=== PATIENT | male | born 1955 | race Caucasian/White ===

== ENCOUNTER 2016-03-11 10:46 | Inpatient (IN) | payer OTHER, MEDICAID ==
[~2016-03-11] VITALS: Ht 165.1 cm; Wt 91.9 kg
[~2016-03-11 10:46] MED LIST: AMLO-218 PO; ATOR40TA68 PO; CARV12.598 PO; FERR325C PO; INSU100I13 SC; LISI40TA9 PO; MTF1000T PO; OMEG-101 PO; OMEP20CA16 PO
[2016-03-11] MEDS ORDERED: ALBUTEROL 0.5% (NEB) 2.5 MG/0.5 ML AMP INH STA (11:04)
[2016-03-11] MEDS ORDERED: IPRATROPIUM (NEB) 0.5 MG/2.5 ML AMP INH STA ×2 (11:04→13:24)
[2016-03-11] MEDS ORDERED: NOVMIX SC (11:25)
[2016-03-11] MEDS ORDERED: CARV12.579 PO (11:28)
[2016-03-11] MEDS ORDERED: SITA50TA2 PO (11:29)
[2016-03-11] MEDS ORDERED: GLIP5TAB13 PO (11:29)
[2016-03-11] MEDS ORDERED: LOSA50TA6 PO (11:29)
--- NOTE | 2016-03-11 11:33 | RADRPT ---
PROCEDURE: XR Chest. CLINICAL INDICATION: Shortness of breath. TECHNIQUE: Single frontal view. COMPARISON: 03/02/2015. FINDINGS: The lungs are clear. The heart is enlarged. There is no pleural effusion. There is no pneumothorax. IMPRESSION: 1. Cardiomegaly. 2. Clear lungs. RPTAT: QQ .Aren Wharton MD, MD Date Time Electronically viewed and signed by .Aren Wharton MD, MD on 03/11/2016 11:33 .R/
[2016-03-11 11:53] LABS: BASOPHILS % 0.3 % (0.0-2.0); EOSINOPHILS % 0.1 % (0.0-7.0); HEMATOCRIT 28.6 % (42.0-52.0); HEMOGLOBIN 9.9 g/dl (14.0-18.0); LYMPHOCYTES # 0.8 10^3/ul (0.8-2.9); LYMPHOCYTES % 5.1 % (15.0-51.0); MEAN CORPUSCULAR HGB CONC 34.4 g/dl (32.0-37.0); MEAN CORPUSCULAR VOLUME 81.3 fl (82.0-101.0); MONOCYTE # 1.1 10^3/ul (0.3-0.9); MONOCYTES % 7.3 % (0.0-11.0); NEUTROPHIL # 13.4 10^3/ul (1.6-7.5); NEUTROPHILS % 87.2 % (39.0-77.0); PLATELET COUNT 223 10^3/UL (140-440); RED BLOOD COUNT 3.52 10^6/ul (4.70-6.10); RED CELL DISTRIBUTION WIDTH 14.2 % (11.5-14.5); UNCORRECTED WBC 15.3 10^3/ul (4.8-10.8); WHITE BLOOD COUNT 15.3 10^3/ul (4.8-10.8)
[2016-03-11 11:54] LABS: INR 1.29; PARTIAL THROMBOPLASTIN TIME 39.7 Sec (25.0-35.0); PROTIME 16.2 Sec (12.2-14.2); PT RATIO 1.3
[2016-03-11 11:57] LABS: ALBUMIN 3.5 g/dl (3.3-4.9); CHLORIDE 90 mmol/L (97-110)
[2016-03-11 11:58] LABS: POTASSIUM 4.3 mmol/L (3.5-5.1); SODIUM 131 mmol/L (135-144)
[2016-03-11 11:59] LABS: CONDITION 1; LH ANALYZER COMMENTS 1
[2016-03-11 12:00] LABS: ALBUMIN/GLOBULIN RATIO 0.94; ALKALINE PHOSPHATASE 199 IU/L (42-121); ANION GAP 21 (8-16); ASPARTATE AMINO TRANSFERASE 26 IU/L (15-46); BLOOD UREA NITROGEN 46 mg/dl (7-20); CARBON DIOXIDE 24 mmol/L (21-31); CREATININE 2.82 mg/dl (0.61-1.24); TOTAL PROTEIN 7.2 g/dl (6.1-8.1)
[2016-03-11 12:01] LABS: ALANINE AMINOTRANSFERASE 38 IU/L (13-69); CALCIUM 8.6 mg/dl (8.4-10.2); CREATINE KINASE 329 IU/L (23-200); GLUCOSE 148 mg/dl (70-220)
[2016-03-11 12:09] LABS: B-TYPE NATRIURETIC PEPTIDE 6230 PG/ML (0-125)
[2016-03-11 12:10] LABS: CK-MB 2.46 ng/ml (0.0-2.4)
[2016-03-11 12:14] LABS: TROPONIN-I < 0.012 ng/ml (0.00-0.12)
[2016-03-11] MEDS ORDERED: FUROSEMIDE 40 MG INJ IV ONE (12:30)
[2016-03-11 12:52] VITALS: TEMP 97.7
[2016-03-11 13:14] LABS: AADO2 Arterial 69.1 mmHg (7.0-24.0); Allen Test ACCEPTAB; Arterial Base Excess -0.2 mmol/L (-3.0-3); Arterial COHb 0.3 % (0.0-3.0); Arterial Fraction of Oxyhgb 95.8 % (93.0-99.0); Arterial HCO3 23.1 mmol/L (22.0-26.0); Arterial MetHb 0.3 % (0.0-1.5); Arterial Total Hemglobin 8.8 g/dl (12.0-18.0); MODE NASAL CANNULA
[2016-03-11] MEDS ORDERED: LEVALBUTEROL (NEB) 1.25 MG/0.5 ML AMP INH STA (13:24)
--- NOTE | 2016-03-11 14:09 | ERA ---
ER Documentation Chief Complaint Date/Time DATE: 03/11/16 TIME: 14:04 Chief Complaint SOB WITH COUGH AND RECENT DX OF PULMONARY EDAMA HPI This is a 61-year-old German speaking male with a known history of congestive heart failure, diabetes, hypertension that presents to the emergency department complaining of a nonproductive cough and shortness of breath that has been progressively worsening over the past 48 hours. He was seen in the clinic yesterday and was instructed to immediately come to the emergency department however the patient stated he decided to go home. His symptoms progressively worse throughout the night and therefore he came to the emergency department. He states he has also been experiencing swelling of his legs but denies any calf tenderness. He denies any fever shaking or chills. He has no chest pain or pressure that radiates to the neck or back or jaw. He states he has been compliant with all his medications. He denies any recent travel or prolonged immobilization and states that the symptoms are similar nature to his previous episode of CHF exacerbation ROS All systems reviewed and are negative except as per history of present illness. Medications Home Meds Active Scripts Carvedilol* (Coreg*) 12.5 Mg Tab, 12.5 MG PO BID for 60 Days, TAB Prov:WILLIE LIMLaureen 03/04/15 Reported Medications Losartan Potassium* (Losartan Potassium*) 50 Mg Tablet, 50 MG PO DAILY, TAB 03/11/16 Glipizide* (Glipizide*) 5 Mg Tablet, 5 MG PO BID, TAB 03/11/16 Sitagliptin* (Januvia*) 50 Mg Tablet, 50 MG PO DAILY, #30 TAB 03/11/16 Carvedilol* (Carvedilol*) 12.5 Mg Tablet, 12.5 MG PO BID, #60 TAB 03/11/16 Insulin Aspart (Novolog Mix (70/30)) 100 Units/Ml Soln, 30 SC WITH BREAKFAST LUNCH, VIAL 03/11/16 [place]-3 Acid Ethyl Esters ([place]-3 Acid Ethyl Esters) 1 Gm Capsule, 1 GM PO BID , #180 03/02/15 Omeprazole* (Omeprazole*) 20 Mg Capsule.dr, 20 MG PO AC BREAKFAST, #90 03/02/15 Lisinopril* (Lisinopril*) 40 Mg Tablet, 40 MG PO DAILY, #30 TAB 03/02/15 Metformin* (Glucophage*) 1,000 Mg Tablet, 1000 MG PO BID, #60 TAB 03/02/15 Insuln Asp Prt/Insulin Aspart* (Novolog Mix 70-30 Flexpen*) 100 Units/Ml Pen, 20 UNIT SC QHS, EA 03/02/15 Discontinued Reported Medications Ferrous Sulfate (Iron) 325 Mg Capsr, 325 MG PO DAILY 03/02/15 Atorvastatin* (Atorvastatin*) 40 Mg Tablet, 40 MG PO QHS, #30 TAB 03/02/15 Insuln Asp Prt/Insulin Aspart* (Novolog Mix 70-30 Flexpen*) 100 Units/Ml Pen, 40 UNIT SC AC BREAKFAST LUNCH, EA 03/02/15 Discontinued Scripts Amlodipine Besylate* (Norvasc*) 10 Mg Tablet, 10 MG PO DAILY for 60 Days, TAB Prov:GABRIELLE LIM 03/04/15 Allergies Allergies: Coded Allergies: No Known Allergy (Unverified , 03/11/16) PMhx/Soc History of Surgery: Yes (Both eyes surgery) Anesthesia Reaction: No Hx Neurological Disorder: No Hx Respiratory Disorders: Yes (bronchitis 2016) Hx Cardiac Disorders: No Hx Psychiatric Problems: No Hx Miscellaneous Medical Probl: No Hx Alcohol Use: Yes Hx Substance Use: No Hx Tobacco Use: No Physical Exam Vitals Vital Signs Date Time Temp Pulse Resp B/P Pulse Ox O2 Delivery O2 Flow Rate FiO2 03/11/16 14:01 70 24 100 2.0 28 03/11/16 12:52 97.7 68 18 158/86 99 Nasal Cannula 2.0 03/11/16 12:19 97.7 98 24 164/84 03/11/16 12:01 99 3.0 32 03/11/16 12:01 66 22 99 Nasal Cannula 3.0 32 03/11/16 11:17 Nasal Cannula 2 03/11/16 11:17 Nasal Cannula 2.0 03/11/16 10:50 97.9 76 18 175/79 99 Physical Exam Constitutional:Well-developed. Well-nourished. Patient in severe respiratory distress peer HEENT:Normocephalic. Atraumatic.Pupils were equal round reactive to light. Moist mucous membranes.No tonsillar exudates. Neck: No nuchal rigidity. No lymphadenopathy. No posterior cervical spine tenderness or step-offs. Respiratory: Using accessory muscles of respiration.Lungs were clear to auscultation bilaterally.No rales. No wheezing. Rhonchi heard bilaterally Cardiovascular: Regular rate regular rhythm.No murmurs. No rubs were appreciated.S1, S2 normal. Distal pulses are palpable 2+ bilaterally. GI: Abdomen was soft. Nontender. Non Distended. No pulsatile abdominal masses or bruits. No rebound. No guarding. Bowel sounds were present and normal. Muscle skeletal: Full range of motion of both the upper and lower extremities bilaterally.Normal muscle tone.No assymetrical calf tenderness or swelling. Skin: No petechia, no purpura. No lesions on the palms or the soles of the feet. No maculopapular rash. 2+ pitting edema the bilateral lower extremities with no calf tenderness NEURO: Patient was alert, awake, orientated x3.No facial droop. Gait observed and normal with no ataxia.Speech had regular rate and rhythm. No focal neurological deficits. Result Diagram: 03/11/16 1115 03/11/16 1115 Results 24 hrs Laboratory Tests Test 03/11/16 11:04 03/11/16 11:15 03/11/16 11:16 Arterial Blood HCO3 23.1mmol/L Arterial Blood Base Excess -0.2mmol/L Arterial Blood Oxygen Saturation 96.4mmHG Oniel Test ACCEPTAB Arterial Blood Gas Puncture Site Right Radial Arterial Blood Carboxyhemoglobin 0.3% Arterial Blood Date Drawn 03/11/2016 1:08:24 PM Arterial Blood Methemoglobin 0.3% Arterial Blood pCO2 (Temp correct) 32.3mmhg Arterial Blood pH (Temp corrected) 7.472 Arterial Blood pO2 (Temp corrected) 85.2mmHG Blood Gas A-a O2 Differential 69.1mmHg Blood Gas Modality NASAL CANNULA Blood Gas Notified Time 03/11/2016 1:14:06 PM Blood Gas Notified Whom AB Blood Gas Specimen Source Blood arterial Blood Gas Temperature 37.0C FiO2 27.0% Oxyhemoglobin Percent 95.8% Total Hemoglobin 8.8g/dl Alanine Aminotransferase (ALT/SGPT) 38IU/L Albumin 3.5g/dl Albumin/Globulin Ratio 0.94 Alkaline Phosphatase 199IU/L Anion Gap 21 Aspartate Amino Transf (AST/SGOT) 26IU/L B-Type Natriuretic Peptide 6230PG/ML Basophils # 0.010^3/ul Basophils % 0.3% Blood Morphology Comment Blood Urea Nitrogen 46mg/dl Calcium Level 8.6mg/dl Carbon Dioxide Level 24mmol/L Chloride Level 90mmol/L Creatine Kinase 329IU/L Creatine Kinase Index 0.7 Creatinine 2.82mg/dl Creatinine Kinase MB (Mass) 2.46ng/ml Direct Bilirubin 0.00mg/dl Eosinophils # 0.010^3/ul Eosinophils % 0.1% Globulin 3.70g/dl Glucose Level 148mg/dl Hematocrit 28.6% Hemoglobin 9.9g/dl Indirect Bilirubin 0.0mg/dl Lymphocytes # 0.810^3/ul Lymphocytes % 5.1% Mean Corpuscular Hemoglobin 28.0pg Mean Corpuscular Hemoglobin Concent 34.4g/dl Mean Corpuscular Volume 81.3fl Mean Platelet Volume 10.0fl Monocytes # 1.110^3/ul Monocytes % 7.3% Neutrophils # 13.410^3/ul Neutrophils % 87.2% Nucleated Red Blood Cells # 0.010^3/ul Nucleated Red Blood Cells % 0.0/100WBC Platelet Count 83783^3/UL Potassium Level 4.3mmol/L Red Blood Count 3.5210^6/ul Red Cell Distribution Width 14.2% Sodium Level 131mmol/L Total Bilirubin 0.0mg/dl Total Protein 7.2g/dl Troponin I < 0.012ng/ml White Blood Count 15.310^3/ul Activated Partial Thromboplast Time 39.7Sec INR International Normalized Ratio 1.29 Prothrombin Time 16.2Sec Prothrombin Time Ratio 1.3 Current Medications Medications (Trade) Dose Ordered Sig/Bong Route PRN Reason Start Time Stop Time Status Last Admin Dose Admin Albuterol (Proventil 0.5% (Neb)) 7.5 mg ONCE STAT INH 03/11/16 11:04 03/11/16 11:09 DC 03/11/16 12:00 Ipratropium [place] (Atrovent 0.02% (Neb)) 0.5 mg ONCE STAT INH 03/11/16 11:04 03/11/16 11:09 DC 03/11/16 12:00 Furosemide (Lasix) 40 mg ONCE ONCE IV 03/11/16 12:30 03/11/16 12:32 DC 03/11/16 12:48 Levalbuterol (Xopenex Neb) 5 mg ONCE STAT INH 03/11/16 13:24 03/11/16 13:27 DC 03/11/16 13:56 Ipratropium [place] (Atrovent 0.02% (Neb)) 1 mg ONCE STAT INH 03/11/16 13:24 03/11/16 13:27 DC 03/11/16 13:56 Procedures/MDM The patient presented to the emergency department with shortness of breath. My differential diagnosis included but was not limited to upper airway obstruction , CHF, pulmonary embolism, cardiac ischemia, pneumonia, pneumothorax, anemia, drug overdose, pulmonary edema, COPD or asthma. The patient was placed in a conveyor monitor continuous pulse oximetry and IV access was established by nursing staff. The patient received nebulizer treatments of albuterol Atrovent and was treated for congestive heart failure exacerbation as there is an elevated BNP but the chest radiograph showed no evidence of pulmonary vascular congestion. The patient was given IV Lasix and nitroglycerin and had significant improvement of his dyspnea. The patient's multiple comorbidities and his severity of dyspnea when he first arrived I did feel he required admission for further nebulizer treatments. 12 Lead EKG tracing ordered and reviewed by myself showed: Normal sinus rhythm of 70 bpm and no arrhythmia. VA interval normal. QRS duration normal. ST segment elevation consistent with a left bundle branch block pattern. Utilizing the [place] criteria there is no underlying ST segment elevation or depression No ST segment depression. No changes consistent with acute ischemia. Patient will be admitted in serious condition the hospitalist Dr. Carbone to the telemetry service with an anticipated stay of greater than 2 midnights Departure Diagnosis: Primary Impression: Congestive heart failure Qualified Code: I50.9 - Acute on chronic congestive heart failure, unspecified congestive heart failure type Additional Impression: Acute kidney injury [facility] Mar 11, 2016 14:08
[2016-03-11] MEDS ORDERED: NITROGLYCERIN 2% 1 GM OINT PKT TD STA (14:10)
[2016-03-11] MEDS ORDERED: ACETAMINOPHEN 325 MG TAB PO PRN (14:30)
[2016-03-11] MEDS ORDERED: ONDANSETRON 4 MG INJ IV PRN ×2 (14:30→16:00)
[2016-03-11 14:48] LABS: ADD UMIC YES; URINE BILIRUBIN (Dip) NEGATIVE (NEGATIVE); URINE BLOOD (Dip) 1+ (NEGATIVE); URINE COLOR LT. YELLOW (YELLOW); URINE KETONES (Dip) NEGATIVE (NEGATIVE); URINE LEUKOCYTE ESTERASE (Dip) NEGATIVE (NEGATIVE); URINE NITRITE (Dip) NEGATIVE (NEGATIVE); URINE TOTAL PROTEIN (Dip) 2+ (NEGATIVE); URINE UROBILINOGEN (Dip) 0.2 E.U./dL (0.1-1.0)
[2016-03-11 14:59] LABS: BACTERIA,URINE RARE; URINE RBCS 0-2 /HPF (0)
--- NOTE | 2016-03-11 15:42 | HP ---
Date/Time of Note Date/Time of Note DATE: 03/11/16 TIME: 15:28 Assessment/Plan VTE Prophylaxis VTE Prophylaxis Intervention: heparin Assessment/Plan Assessment/Plan 61 yo M with Acute resp insufficiency 2/2 #2 CHF exacerbation * Acute on chronic with both systolic and diastolic dysfxn Reactive Leucocytosis r/o Bronchitis Mild Rhabdomyolysis DM 2: ?good control HTN: uncontrolled Dyslipidemia Acute renal insufficiency likely2/2 ATN from CHF versus ?meds Probable CAD Chronic CM likely ischemic with diastolic dysfxn on last echo PLAN: Admit tele Commence gentle diuresis Will get Cardiology and Nephrology consults Hold ACEi, ARBs, and metformin. Renally dose all meds. Serial labs. Resume home meds / add PRN hydralazine for better BP control and titrate meds accordingly in-house Bronchodilator therapy: scheduled and PRN pain control/ antiemetics/ supportive care Prophylaxis: Heparin and PPI Further evaluation and treatment will be based on clinical course Full discussion with care team done. All questions Answered Please also see orders. Total time spent on this evaluation >35mins HPI/ROS Admit Date/Time Admit Date/Time 03/11/16 Hx of Present Illness PRESENTING COMPLAINT: shortness of breath HISTORY OF PRESENTING COMPLAINT:This is a 61-year-old Guinean speaking male with a known history of congestive heart failure, diabetes, hypertension that presents to the emergency department complaining of a nonproductive cough and shortness of breath that has been progressively worsening over the past 48 hours. He was seen in the clinic yesterday and was instructed to immediately come to the emergency department however the patient stated he decided to go home. His symptoms progressively worse throughout the night and therefore he came to the emergency department. He states he has also been experiencing swelling of his legs but denies any calf tenderness. He denies any fever shaking or chills. He has no chest pain or pressure that radiates to the neck or back or jaw. He states he has been compliant with all his medications. He denies any recent travel or prolonged immobilization and states that the symptoms are similar nature to his previous episode of CHF exacerbation ROS 12 point review if systems was done and pertinent findings are as noted. PMH/Family/Social Past Medical History Possible CAD Cardiomyopathy and congestive heart failure. The patient does have an echo that shows an EF at 30% to 35% with stage II diastolic dysfunction, Hypertension. Diabetes. Bronchitis Gastritis Past Surgical History * [facility] sx Family History Significant Family History: diabetes Social History ALLERGY: NKDA HOME MEDS: Reviewed and reconciled Of note , Patient is on both losartan and Lisinopril Home situation: With family Exam/Review of Systems Vital Signs Vitals VS - Last 72 Hours, by Label Date Time Temp Pulse Resp B/P Pulse Ox O2 Delivery O2 Flow Rate FiO2 03/11/16 14:01 70 24 100 2.0 28 03/11/16 12:52 97.7 68 18 158/86 99 Nasal Cannula 2.0 03/11/16 12:19 97.7 98 24 164/84 03/11/16 12:01 99 3.0 32 03/11/16 12:01 66 22 99 Nasal Cannula 3.0 32 03/11/16 11:17 Nasal Cannula 2 03/11/16 11:17 Nasal Cannula 2.0 03/11/16 10:50 97.9 76 18 175/79 99 Vital Signs Date Time Temp Pulse Resp B/P Pulse Ox O2 Delivery O2 Flow Rate FiO2 03/11/16 14:01 70 24 100 2.0 28 03/11/16 12:52 97.7 158/86 Nasal Cannula Exam Exam GENERAL APPEARANCE: Well developed, well nourished, in no acute distress. SKIN: Gross inspection of the skin reveals no rashes, ulcerations or petechiae. HEENT: The sclerae were anicteric and conjunctivae were pink and moist. Extraocular movements were intact and pupils were equal, round, and reactive to light with normal accommodation. External inspection of the ears and nose showed no scars, lesions, or masses. Posterior pharynx was clear of erythema or exudate NECK: Supple and symmetric. There was no thyroid enlargement, and no tenderness , or masses were felt. CHEST: Normal AP diameter and movement . LUNGS: Auscultation of the lungs revealed CARDIOVASCULAR: There was a regular rate and rhythm without any murmurs, gallops , rubs. The carotid pulses were normal and 2+ bilaterally without bruits. Radial pulses were 2+ and symmetric. ABDOMEN: Soft and nontender with normal bowel sounds. No ascites was noted. LYMPH NODES: No lymphadenopathy was appreciated in the neck. MUSCULOSKELETAL: There was no tenderness or effusions noted. Muscle strength and tone were normal. EXTREMITIES: edema. NEUROLOGIC: Alert and oriented x 3. Normal affect PSYCHIATRIC: Normal mood and affect, not suicidal, not homicidal, no hallucinations, normal insight Constitutional: alert, oriented Psych: other (blank affect) Head: atraumatic, normocephalic Eyes: PERRL, icteric (?mildly) ENMT: mucosa pink and moist Neck: supple, No jvd Respiratory: diminished breath sounds, other (occ rhonchi) Cardiovascular: murmurs/extra sounds, regular rate and rhythm Gastrointestinal: bowel sounds, non-tender, soft Extremities: pitting pedal edema (2-3+) Skin: No rash or lesions Labs Result Diagram: 03/11/16 1115 03/11/16 1115 Procedures Procedures Laboratory Tests Test 03/11/16 11:04 03/11/16 11:15 03/11/16 11:16 Arterial Blood HCO3 23.1mmol/L Arterial Blood Base Excess -0.2mmol/L Arterial Blood Oxygen Saturation 96.4mmHG Oniel Test ACCEPTAB Arterial Blood Gas Puncture Site Right Radial Arterial Blood Carboxyhemoglobin 0.3% Arterial Blood Date Drawn 03/11/2016 1:08:24 PM Arterial Blood Methemoglobin 0.3% Arterial Blood pCO2 (Temp correct) 32.3mmhg Arterial Blood pH (Temp corrected) 7.472 Arterial Blood pO2 (Temp corrected) 85.2mmHG Blood Gas A-a O2 Differential 69.1mmHg Blood Gas Modality NASAL CANNULA Blood Gas Notified Time 03/11/2016 1:14:06 PM Blood Gas Notified Whom AB Blood Gas Specimen Source Blood arterial Blood Gas Temperature 37.0C FiO2 27.0% Oxyhemoglobin Percent 95.8% Total Hemoglobin 8.8g/dl Alanine Aminotransferase (ALT/SGPT) 38IU/L Albumin 3.5g/dl Albumin/Globulin Ratio 0.94 Alkaline Phosphatase 199IU/L Anion Gap 21 Aspartate Amino Transf (AST/SGOT) 26IU/L B-Type Natriuretic Peptide 6230PG/ML Basophils # 0.010^3/ul Basophils % 0.3% Blood Morphology Comment Blood Urea Nitrogen 46mg/dl Calcium Level 8.6mg/dl Carbon Dioxide Level 24mmol/L Chloride Level 90mmol/L Creatine Kinase 329IU/L Creatine Kinase Index 0.7 Creatinine 2.82mg/dl Creatinine Kinase MB (Mass) 2.46ng/ml Direct Bilirubin 0.00mg/dl Eosinophils # 0.010^3/ul Eosinophils % 0.1% Globulin 3.70g/dl Glucose Level 148mg/dl Hematocrit 28.6% Hemoglobin 9.9g/dl Indirect Bilirubin 0.0mg/dl Lymphocytes # 0.810^3/ul Lymphocytes % 5.1% Mean Corpuscular Hemoglobin 28.0pg Mean Corpuscular Hemoglobin Concent 34.4g/dl Mean Corpuscular Volume 81.3fl Mean Platelet Volume 10.0fl Monocytes # 1.110^3/ul Monocytes % 7.3% Neutrophils # 13.410^3/ul Neutrophils % 87.2% Nucleated Red Blood Cells # 0.010^3/ul Nucleated Red Blood Cells % 0.0/100WBC Platelet Count 06156^3/UL Potassium Level 4.3mmol/L Red Blood Count 3.5210^6/ul Red Cell Distribution Width 14.2% Sodium Level 131mmol/L Total Bilirubin 0.0mg/dl Total Protein 7.2g/dl Troponin I < 0.012ng/ml Urine Bacteria RARE Urine Bilirubin NEGATIVE Urine Clarity CLEAR Urine Coarse Granular Casts RARE Urine Color LT. YELLOW Urine Glucose 0.1%% Urine Hemoglobin 1+ Urine Ketones NEGATIVE Urine Leukocyte Esterase NEGATIVE Urine Microscopic RBC 0-2/HPF Urine Microscopic WBC 0-2/HPF Urine Nitrite NEGATIVE Urine Specific Girard 1.010 Urine Total Protein 2+ Urine Urobilinogen 0.2 E.U./dL Urine pH 6.0 White Blood Count 15.310^3/ul Activated Partial Thromboplast Time 39.7Sec INR International Normalized Ratio 1.29 Prothrombin Time 16.2Sec Prothrombin Time Ratio 1.3 PROCEDURE: XR Chest. CLINICAL INDICATION: Shortness of breath. TECHNIQUE: Single frontal view. COMPARISON: 03/02/2015. FINDINGS: The lungs are clear. The heart is enlarged. There is no pleural effusion. There is no pneumothorax. IMPRESSION: 1. Cardiomegaly. 2. Clear lungs. RPTAT: QQ .Aren Wharton MD, MD Date Time Electronically viewed and signed by .Aren Wharton MD, on 03/11/2016 11:33 PROCEDURE: Lexiscan myocardial perfusion study 03/03/2015 CLINICAL INDICATION: 60 -year-old patient complaining of chest pain. TECHNIQUE: Lexiscan 0.4 mg intravenously separate acquisition gated myocardial perfusion SPECT using Tc 99m Myoview approximately 30.0 mCi intravenously at stress and Tc-99m Myoview, approximately 10.0 mCi intravenously at rest was performed using the rest/stress sequence. Poststress Myoview SPECT images were obtained in the supine position. COMPARISON: No prior studies. FINDINGS: Perfusion images reveal a small size mild in degree nonreversible perfusion abnormality in the inferior wall. There is no evidence of stress-induced ischemia. Lexiscan post stress gated SPECT images demonstrate mild hypokinesis of the left ventricle. IMPRESSION: 1. The type and distribution of the scintigraphic abnormalities are most consistent with a small nonreversible perfusion abnormality in the inferior wall. 2. Mild hypokinesis of the left ventricle. 3. The left ventricle ejection fraction at stress is 34%. A call report was made to Dr. Nicholson 02:30 p.m. on March 03, 2015 RPTAT: HH .Arlin Alston, Date Time Electronically viewed and signed by .Arlin Alston, on 03/03/2015 14:31 Echocardiogram Report Patient Name: DEEP MORROW Gender: Male Date: 1955 Study Date: 03-Mar-2015 Traveling Repair Accountant: Justino Hilario RDCS Location: [id number] Ref. Physician: MANJEET NICHOLSON Quality: Technically Difficult Study Procedures: Transthoracic echocardiogram with complete 2D, M-Mode, and doppler examination. Indications: Chest Pain. 2D/M Mode Doppler Measurement Value Normal Ranges Measurement Value Normal Ranges LVIDd 2D 5.2 3.5 - 5.6 cm AV Peak Paresh 1.4 m/sec LVIDs 2D 4.5 2.1 - 4.1 cm AV Peak PG 8.0 mmHg LVPWd 2D 1.5 0.6 - 1.1 cm LVOT Peak Paresh 0.8 m/sec IVSd 2D 1.7 0.6 - 1.1 cm LVOT Peak PG 2.3 mmHg AoR Diam 2D 2.7 2.0 - 3.7 cm MV E Peak Paresh 1.2 m/sec EDV 2D 132.0 cm3 MV A Peak Paresh 1.1 m/sec ESV 2D 90.7 cm3 MV E/A 1.0 LA Dimen 2D 3.3 2.3 - 4.0 cm MV Decel Time 183 msec MV Decel [place] 6 MV E/A 1.0 Findings Left Ventricle: Normal left ventricular cavity size. Moderate concentric left ventricular hypertrophy. Severe left ventricular systolic dysfunction. Ejection fraction is visually estimated at 30 - 35 %. Tissue Doppler/Mitral Doppler indices are consistent with pseudonormalization with mildly elevated left atrial pressure (Stage II diastolic dysfunction). Right Ventricle: Normal right ventricular size. Left Atrium: The left atrium is normal in size. Right Atrium: The right atrium is normal in size. Mitral Valve: Normal appearance of the mitral valve. Mild mitral valve regurgitation. Aortic Valve: Normal appearance of the aortic valve. No significant aortic stenosis or insufficiency. Tricuspid Valve: Normal appearance of the tricuspid valve. Unable to obtain RVSP due to minimal presence of tricuspid regurgitation. Pulmonic Valve: Normal pulmonic valve appearance. Pericardium: Normal pericardium with no significant pericardial effusion. Aorta: Normal aortic root. IVC: Normal size and no respiratory collapse consistent with elevated right atrial pressure. Pulmonary Artery: Normal pulmonary artery size. Conclusions 1. Normal left ventricular cavity size. Moderate concentric left ventricular hypertrophy. Severe left ventricular systolic dysfunction. Ejection fraction is visually estimated at 30 - 35 %. Tissue Doppler/Mitral Doppler indices are consistent with pseudonormalization with mildly elevated left atrial pressure (Stage II diastolic dysfunction). 2. Normal appearance of the mitral valve. Mild mitral valve regurgitation. 3. Normal appearance of the aortic valve. No significant aortic stenosis or insufficiency. 4. Normal appearance of the tricuspid valve. Unable to obtain RVSP due to minimal presence of tricuspid regurgitation. Electronically Signed By: Manjeet Nicholson 03-Mar-2015 12:53:48 -0800 DIANA HARRISON Mar 11, 2016 15:39
[2016-03-11] MEDS ORDERED: SOD CHLORIDE 0.9% 1,000 ML IV SCH (16:00)
[2016-03-11] MEDS ORDERED: LEVALBUTEROL (NEB) 0.63 MG/3 ML AMP HHN PRN (16:00)
[2016-03-11 16:01] VITALS: BP 158/76; PULSE 75; RESP 18; Ht 165.1 cm; Wt 91.9 kg
[2016-03-11 16:11] VITALS: PULSE 74
[2016-03-11] MEDS ORDERED: DEXTROSE 50% 50 ML SYRINGE IV PRN ×2 (16:30)
[2016-03-11] MEDS ORDERED: GLUCAGON 1 MG INJ IM PRN (16:30)
[2016-03-11] MEDS ORDERED: GLUCOSE GEL 15 GRAM TUBE BUCCAL PRN (16:30)
[2016-03-11] MEDS ORDERED: GLUCOSE GEL 15 GRAM TUBE PO PRN ×2 (16:30)
--- NOTE | 2016-03-11 16:42 | RADRPT ---
PROCEDURE: Retroperitoneal US. CLINICAL INDICATION: Renal insufficiency TECHNIQUE: Multiple sonographic images of the kidneys and retroperitoneum were obtained. The imag es were reviewed on a PACS workstation. COMPARISON: No prior studies are available for comparison. FINDINGS: The kidneys are normal in size, contour, cortical thickness. There is slightly increased echogenicity of the kidneys. The right kidney measures 10.7 cm. The left kidney measures 11.3 cm. No kidney stones are visualized. There is no evidence for hydronephrosis. The urinary bladder is normal. RPTAT: AA IMPRESSION: Slightly echogenic kidneys with no evidence of hydronephrosis. .Fortunato Saul MD, MD Date Time Electronically viewed and signed by .Fortunato Saul MD, on 03/11/2016 16:42 .S/
[2016-03-11] MEDS: LEVALBUTEROL (NEB) 0.63 MG/3 ML AMP INH SCH ×2 (17:22→20:57)
[2016-03-11] MEDS: glipiZIDE 5 MG TAB PO SCH (17:54)
[2016-03-11] MEDS: INSULIN ASPART [NOVOLOG] 3 ML PEN SC SCH ×2 (17:55→21:00)
[2016-03-11 20:08] VITALS: PULSE 75
[2016-03-11 20:17] VITALS: BP 154/74; RESP 20
[2016-03-11] MEDS: IPRATROPIUM (NEB) 0.5 MG/2.5 ML AMP HHN SCH (20:57)
[2016-03-11] MEDS ORDERED: OMEGA ACID ETHYL ESTERS PO SCH (21:00)
[2016-03-11] MEDS: DOCUSATE SODIUM 100 MG CAP PO SCH (21:41)
[2016-03-11] MEDS: FISH OIL 1,000 MG CAP PO SCH (21:41)
[2016-03-11] MEDS: HEPARIN 5,000 UNIT/0.5 ML SYG SC SCH (21:42)
[2016-03-11] MEDS: SALMETEROL/FLUTICASONE 250/50 INHA INH SCH (21:43)
[2016-03-12] VITALS (13 sets, daily range): BP systolic 140–168; BP diastolic 70–81; PULSE 66–80; RESP 17–19
[2016-03-12] MEDS: IPRATROPIUM (NEB) 0.5 MG/2.5 ML AMP HHN SCH ×4 (00:56→13:29)
[2016-03-12] MEDS: LEVALBUTEROL (NEB) 0.63 MG/3 ML AMP INH SCH ×6 (00:57→22:40)
[2016-03-12] MEDS: ACCUCHECK XX SCH (02:00)
[2016-03-12] MEDS: PANTOPRAZOLE (EC) 40 MG TAB PO SCH (05:47)
[2016-03-12] MEDS: FUROSEMIDE 40 MG INJ IV SCH (05:48)
[2016-03-12] MEDS ORDERED: FUROSEMIDE 20 MG INJ IV SCH (06:00)
[2016-03-12] MEDS ORDERED: NON-FORMULARY/PATIENT OWN MED (Omeprazole* 20 MG) PO SCH (07:00)
[2016-03-12] MEDS: INSULIN ASPART [NOVOLOG] 3 ML PEN SC SCH ×4 (07:55→21:00)
--- NOTE | 2016-03-12 08:02 | CONS ---
Date/Time of Note Date/Time of Note DATE: 03/12/16 TIME: 07:58 Assessment/Plan Assessment/Plan Additional Assessment/Plan Acute Systolic CHF exacerbation Severe Cardiomyopathy ARF/CKD HTN -EF 30-35% and will continue cardiac meds -no ARB/ACEI/Aldactone due to AKD -Continue gentle diureisis -Continue BP management - increase bp meds and may add hydralazine -CXR clear Consultation Date/Type/Reason Admit Date/Time 03/11/16 Hx of Present Illness This is a 61-year-old Croatian speaking male with a known history of congestive heart failure, diabetes, hypertension that presents to the emergency department complaining of a nonproductive cough and shortness of breath that has been progressively worsening over the past 48 hours. He was seen in the clinic yesterday and was instructed to immediately come to the emergency department however the patient stated he decided to go home. His symptoms progressively worse throughout the night and therefore he came to the emergency department. He states he has also been experiencing swelling of his legs but denies any calf tenderness. He denies any fever shaking or chills. He has no chest pain or pressure that radiates to the neck or back or jaw. He states he has been compliant with all his medications. He denies any recent travel or prolonged immobilization and states that the symptoms are similar nature to his previous episode of CHF exacerbation. The patient recently at [facility] with small ischemia in the inferior territory by cardioloyte with an EF of 30-35% and progressive VELA for the past 2 weeks Psychological: other (blank affect) Social History Smoking Status: Never smoker Exam/Review of Systems Vital Signs Vitals Vital Signs Date Time Temp Pulse Resp B/P Pulse Ox O2 Delivery O2 Flow Rate FiO2 03/12/16 07:45 98.1 18 159/76 96 03/12/16 05:05 21 03/12/16 04:03 66 03/11/16 19:52 Nasal Cannula 2.0 Intake and Output 03/11/16 03/11/16 03/12/16 15:00 23:00 07:00 Intake Total 360 ml Output Total 800 ml Balance 360 ml -800 ml Results Result Diagram: 03/11/16 1115 03/11/16 1115 Results 24 hrs Laboratory Tests Test 03/11/16 11:04 03/11/16 11:15 03/11/16 11:16 03/11/16 17:53 Arterial Blood HCO3 23.1 Arterial Blood Base Excess -0.2 Arterial Blood Oxygen Saturation 96.4 Oniel Test ACCEPTAB Arterial Blood Gas Puncture Site Right Radial Arterial Blood Carboxyhemoglobin 0.3 Arterial Blood Date Drawn 03/11/2016 1:08:24 PM Arterial Blood Methemoglobin 0.3 Arterial Blood pCO2 (Temp correct) 32.3 L Arterial Blood pH (Temp corrected) 7.472 H Arterial Blood pO2 (Temp corrected) 85.2 Blood Gas A-a O2 Differential 69.1 H Blood Gas Modality NASAL CANNULA Blood Gas Notified Time 03/11/2016 1:14:06 PM Blood Gas Notified Whom AB Blood Gas Specimen Source Blood arterial Blood Gas Temperature 37.0 FiO2 27.0 Oxyhemoglobin Percent 95.8 Total Hemoglobin 8.8 L Alanine Aminotransferase (ALT/SGPT) 38 Albumin 3.5 Albumin/Globulin Ratio 0.94 Alkaline Phosphatase 199 H Anion Gap 21 H Aspartate Amino Transf (AST/SGOT) 26 B-Type Natriuretic Peptide 6230 H Basophils # 0.0 Basophils % 0.3 Blood Morphology Comment Blood Urea Nitrogen 46 H Calcium Level 8.6 Carbon Dioxide Level 24 Chloride Level 90 L Creatine Kinase 329 H Creatine Kinase Index 0.7 Creatinine 2.82 H Creatinine Kinase MB (Mass) 2.46 H Direct Bilirubin 0.00 Eosinophils # 0.0 Eosinophils % 0.1 Globulin 3.70 H Glucose Level 148 Hematocrit 28.6 L Hemoglobin 9.9 L Indirect Bilirubin 0.0 Lymphocytes # 0.8 Lymphocytes % 5.1 L Mean Corpuscular Hemoglobin 28.0 L Mean Corpuscular Hemoglobin Concent 34.4 Mean Corpuscular Volume 81.3 L Mean Platelet Volume 10.0 Monocytes # 1.1 H Monocytes % 7.3 Neutrophils # 13.4 H Neutrophils % 87.2 H Nucleated Red Blood Cells # 0.0 Nucleated Red Blood Cells % 0.0 Platelet Count 223 # Potassium Level 4.3 Red Blood Count 3.52 L Red Cell Distribution Width 14.2 Sodium Level 131 L Total Bilirubin 0.0 L Total Protein 7.2 Troponin I < 0.012 Urine Bacteria RARE Urine Bilirubin NEGATIVE Urine Clarity CLEAR Urine Coarse Granular Casts RARE Urine Color LT. YELLOW Urine Glucose 0.1% H Urine Hemoglobin 1+ H Urine Ketones NEGATIVE Urine Leukocyte Esterase NEGATIVE Urine Microscopic RBC 0-2 Urine Microscopic WBC 0-2 Urine Nitrite NEGATIVE Urine Specific [place] 1.010 Urine Total Protein 2+ H Urine Urobilinogen 0.2 E.U./dL Urine pH 6.0 White Blood Count 15.3 #H Activated Partial Thromboplast Time 39.7 H INR International Normalized Ratio 1.29 Prothrombin Time 16.2 H Prothrombin Time Ratio 1.3 Bedside Glucose 79 Test 03/11/16 21:39 Bedside Glucose 86 Medications Medications Current Medications Carvedilol (Coreg) 6.25 mg BID PO Last administered on 03/11/16 21:43; Admin Dose 6.25 MG; Start 03/11/16 at 21:00 Ondansetron HCl (Zofran Inj) 4 mg Q6H PRN IV NAUSEA AND/OR VOMITING; Start at 16:00 Docusate Sodium (Colace) 100 mg BID PO Last administered on 03/11/16 21:41; Admin Dose 100 MG; Start 03/11/16 at 21:00 Pantoprazole (Protonix Tab) 40 mg DAILY@06 PO Last administered on 03/12/16 05 :47; Admin Dose 40 MG; Start 03/12/16 at 06:00 Fish Oil (Fish Oil) 1,000 mg BID PO Last administered on 03/11/16 21:41; Admin Dose 1,000 MG; Start 03/11/16 at 21:00 Miscellaneous Information 1 ea NOTE XX ; Start 03/11/16 at 16:30 Glucose (Glutose) 15 gm Q15M PRN PO DECREASED GLUCOSE; Start 03/11/16 at 16:30 Glucose (Glutose) 22.5 gm Q15M PRN PO DECREASED GLUCOSE; Start 03/11/16 at 16: 30 Dextrose (D50w Syringe) 25 ml Q15M PRN IV DECREASED GLUCOSE; Start 03/11/16 at 16:30 Dextrose (D50w Syringe) 50 ml Q15M PRN IV DECREASED GLUCOSE; Start 03/11/16 at 16:30 Glucagon (Glucagen) 1 mg Q15M PRN IM DECREASED GLUCOSE; Start 03/11/16 at 16:30 Glucose (Glutose) 15 gm Q15M PRN BUCCAL DECREASED GLUCOSE; Start 03/11/16 at 16 :30 Influenza Virus Vaccine (Fluzone) 0.5 ml ONCE ONCE IM* ; Start 03/14/16 at 09:00 ; Stop 03/14/16 at 09:01 Furosemide (Lasix) 40 mg DAILY@06 IV Last administered on 03/12/16 05:48; Admin Dose 40 MG; Start 03/12/16 at 06:00 Diagnostic Test (Pha) (Accucheck) 1 ea 02 XX ; Start 03/12/16 at 02:00 Heparin Sodium (Porcine) (Heparin (5000 Units/0.5 ml)) 5,000 unit BID SC Last administered on 03/11/16 21:42; Admin Dose 5,000 UNIT; Start 03/11/16 at 21:00 ARVIN TABOR MD Mar 12, 2016 08:02
[2016-03-12 08:08] LABS: IRON 29 ug/dl (35-150)
[2016-03-12 08:17] LABS: TOTAL IRON BINDING CAPACITY 237 ug/dl (241-421)
[2016-03-12] MEDS: HEPARIN 5,000 UNIT/0.5 ML SYG SC SCH ×2 (08:25→21:36)
[2016-03-12 08:30] LABS: POTASSIUM 3.9 mmol/L (3.5-5.1)
[2016-03-12] MEDS: glipiZIDE 5 MG TAB PO SCH ×2 (08:30→17:50)
[2016-03-12] MEDS: DOCUSATE SODIUM 100 MG CAP PO SCH ×2 (08:30→21:29)
[2016-03-12] MEDS: FISH OIL 1,000 MG CAP PO SCH ×2 (08:30→21:29)
[2016-03-12 08:32] LABS: CREATININE 2.46 mg/dl (0.61-1.24)
[2016-03-12 08:33] LABS: CALCIUM 8.2 mg/dl (8.4-10.2)
[2016-03-12] MEDS: SALMETEROL/FLUTICASONE 250/50 INHA INH SCH ×2 (09:20→21:29)
[2016-03-12 10:37] LABS: ADD UMIC YES; URINE BILIRUBIN (Dip) NEGATIVE (NEGATIVE); URINE BLOOD (Dip) 1+ (NEGATIVE); URINE COLOR LT. YELLOW (YELLOW); URINE GLUCOSE (Dip) NEGATIVE (NEGATIVE); URINE KETONES (Dip) NEGATIVE (NEGATIVE); URINE LEUKOCYTE ESTERASE (Dip) NEGATIVE (NEGATIVE); URINE NITRITE (Dip) NEGATIVE (NEGATIVE); URINE TOTAL PROTEIN (Dip) 1+ (NEGATIVE); URINE UROBILINOGEN (Dip) 0.2 E.U./dL (0.1-1.0)
[2016-03-12 10:48] LABS: URINE RBCS 0-2 /HPF (0)
--- NOTE | 2016-03-12 11:17 | CONS ---
DATE OF ADMISSION: 03/11/2016 DATE OF CONSULTATION: 03/12/2016 TYPE OF CONSULTATION: Nephrology. REQUESTING PHYSICIAN: Diana Harrison MD REASON FOR CONSULTATION: Acute kidney injury. HISTORY OF PRESENT ILLNESS: This is a 61-year-old male with a past medical history of CHF and cardi omyopathy with an approximate ejection fraction around 30% to 35%, a history of chronic kidney dise ase with previous baseline creatinine around 1.4 mg/dL, history of diabetes, hypertension, who pres ents to [facility] with cough and worsening shortness. The patient states that ov er the last 2 to 3 days prior to admission, he has noticed worsening shortness of breath and dyspnea on exertion. He went to an outside clinic and was instructed to come to the emergency room. The p atient initially declined to come but due to worsening shortness of breath and lower extremity edema and swelling, he came into the emergency room. Upon arrival, the patient had a chest x-ray which s howed no obvious pulmonary edema. The patient on admission was noted to be hypertensive. In the em ergency room, the patient was treated with diuretic therapy and nebulized therapy and admitted to [facility] for continued medical management and evaluation. The patient while on the telemetry floor h as been clinically stable. There have been no reports of hemoptysis, hematemesis, or hematochezia. In terms of patient's renal history, the patient has had previous baseline creatinine around 1.4 mg_ ___ from laboratory data approximately 1 year ago. The patient denies any history of chronic kidney disease, but states that he has been diabetic for the past 10 years. He does admit to diabetic ret inopathy and neuropathy. The patient does take an JORDEN inhibitor and ARBS in the outpatient setting. The patient has been compliant with his medications. He denies any recent NSAID use. Denies any recent contrast exposure. PAST MEDICAL HISTORY: As stated above, history of CKD, history of hypertension, diabetes, history o f cardiomyopathy. PAST SURGICAL HISTORY: The patient had eye surgery. FAMILY HISTORY: Positive for diabetes. ALLERGIES: NO KNOWN DRUG ALLERGIES. MEDICATIONS: The patient's medications have been reviewed. SOCIAL HISTORY: Does not drink, smoke or do drugs. REVIEW OF SYSTEMS: A 14-point review of systems was conducted. Pertinent positives as stated in HP I, otherwise negative. PHYSICAL EXAMINATION: VITAL SIGNS: Blood pressure is 159/ 76, respiration is 18, pulse 66, temperature 98.3. I'S AND O'S: The patient had 360 in with 800 out. HEENT: Head is normocephalic. Pupils are reactive to light. NECK: Supple. HEART: Regular rate. LUNGS: Show diminished breath sounds at base. ABDOMEN: Soft, nontender to palpation. No rebound or guarding. EXTREMITIES: Positive for edema +3 bilaterally. DERMATOLOGIC: No rashes. MUSCULOSKELETAL: No joint effusions. NEUROLOGIC: No focal deficits. LABORATORY DATA: Shows a white count of 15.3, hemoglobin 9.9, hematocrit ____, platelet count is 22 3. Sodium is 131, potassium 4.3, chloride 90, BUN 46, creatinine 2.82. Urinalysis shows coarse gra nular casts, no pyuria, no hematuria, +2 proteinuria. Positive glucose. The patient's ABG was revi ewed, and chest x-ray was reviewed. ASSESSMENT AND PLAN: This is a 61-year-old male who presents with: 1. Nonoliguric acute kidney injury on top of chronic kidney disease stage III with a previous basel ine creatinine of 1.4 mg/dL. Etiology of acute kidney injury is multifactorial secondary to tubular injury with possible underlying cardiorenal pathophysiology. The patient is also on JORDEN inhibitor and ARB which is a contributing factor to his acute kidney injury: The patient's urinalysis shows ev idence of coarse granular casts consistent with tubular injury. Otherwise, non-active sediment. Th erefore, low suspicion for acute glomerulonephritis, vasculitis or interstitial nephritis. Patient also is clinically volume overloaded with lower extremity edema and a reported ejection fraction of 30% to 35%. The patient's renal ultrasound was reviewed, shows no evidence of obstruction and incre ased echogenicity consistent with chronic kidney disease. Plan at this point is to discontinue IV fluids. Would recommend to continue diuretic therapy as the patient is volume overloaded. We will hold JORDEN inhibitor ARB at this time in the setting of acute kidney injury. We will monitor renal fu nction closely on diuretic therapy. Would otherwise continue supportive care, renally dose all meds , avoid nephrotoxins. Please note that the patient's proteinuria will be quantified by checking a pr otein/creatinine ratio, albumin/creatinine ratio and we will also repeat urinalysis and check urine electrolytes. 2. Hyponatremia, etiology secondary to acute kidney injury causing decreased urinary free water exc retion. Recommendation at this point is to limit free water intake, no more than 800 mL to 1 liter daily. Monitor sodium levels. 3. Mineral bone disorder. We will monitor calcium and phosphorus levels. We will check a PTH and vitamin D25 level. 4. Anemia, likely of chronic disease. Monitor H and H levels. We will give Epogen as needed. 5. Chronic kidney disease, likely due to underlying diabetic nephropathy. The patient's urinalysis does shows proteinuria. The patient has underlying retinopathy. These findings are consistent with patients with diabetic renal disease. Recommendation would be to continue to treat acute kidney in jury as stated above. We will otherwise continue disease factor modification. We will defer JORDEN inh ibitor ARB at this time and monitor closely. 6. Volume overload. Acute systolic and diastolic heart failure. The patient's reported 2D echo sh ows ejection fraction of 35%. We will continue current medical management in terms of diuretic ther apy. We will follow up with cardiology for further recommendations. Monitor closely. 7. Acute hypoxemic respiratory failure. Etiology is likely secondary to CHF exacerbation. Continu e medical management as stated above. 8. Leukocytosis. Etiology is unclear, possibly reactive. We will monitor closely. Patient's ches t x-ray shows no evidence of infiltrate. 9. Diabetes. Continue Accu-Cheks and insulin sliding scale. 10. Hypertension, in part due to increased intravascular volume. Continue current blood pressure r egimen. Continue diuretic therapy. 11. Hypercholesterolemia. Continue statin therapy. Thank you, Dr. Harrison, for this interesting consultation. I will be a pleasure to follow the patient w lavinia leach throughout the hospital course. Dictated By: WILLIS KAPLAN DO NR/NTS Conf#: [id number] DID#: [id number] CC: DIANA HARRISON MD;*EndCC*
[2016-03-12] MEDS ORDERED: METOLAZONE 5 MG TAB PO ONE (11:30)
--- NOTE | 2016-03-12 12:19 | PN ---
Date/Time of Note Date/Time of Note DATE: 03/12/16 TIME: 12:11 Assessment/Plan VTE Prophylaxis VTE Prophylaxis Intervention: SCD's Lines/Catheters [facility] Peripheral IV Urinary Cath still in place: No Assessment/Plan Assessment/Plan 61 yo M with Acute resp insufficiency 2/2 #2: improved CHF exacerbation * Acute on chronic with both systolic and diastolic dysfxn Reactive Leucocytosis r/o Bronchitis Mild Rhabdomyolysis DM 2: ?good control HTN: uncontrolled Dyslipidemia Acute renal insufficiency likely2/2 ATN from CHF versus ?meds: improving CKD likely 2/2 DM nephropathy Probable CAD Chronic CM likely ischemic EF 30-35% with diastolic dysfxn on last echo PLAN: Continue Telemetry monitoring Continue gentle diuresis Continue to Hold ACEi, ARBs, and metformin. Renally dose all meds. Serial labs. Resume home meds / add PRN hydralazine for better BP control and titrate meds accordingly in-house Bronchodilator therapy PRN pain control/ antiemetics/ supportive care Appreciate Cardiology and Nephrology consults Prophylaxis: Heparin and PPI Further evaluation and treatment will be based on clinical course Full discussion with care team done. All questions Answered Please also see orders. Subjective 24 Hr Interval Summary Free Text/Dictation Patient seen and examined. Nursing reports no acute overnight events. Exam/Review of Systems Vital Signs Vitals Vital Signs Date Time Temp Pulse Resp B/P Pulse Ox O2 Delivery O2 Flow Rate FiO2 03/12/16 09:27 98 2.0 03/12/16 09:27 75 18 Nasal Cannula 03/12/16 07:45 98.1 159/76 03/12/16 05:05 21 Intake and Output 03/11/16 03/11/16 03/12/16 15:00 23:00 07:00 Intake Total 360 ml Output Total 800 ml Balance 360 ml -800 ml Exam alert, oriented Psych: other (blank affect) Head: atraumatic, normocephalic Eyes: PERRL, icteric (?mildly) ENMT: mucosa pink and moist Neck: supple, No jvd Respiratory: diminished breath sounds, other (occ rhonchi) Cardiovascular: murmurs/extra sounds, regular rate and rhythm Gastrointestinal: bowel sounds, non-tender, soft Extremities: pitting pedal edema (2-3+) Skin: No rash or lesions Results Result Diagram: 03/11/16 1115 03/12/16 0655 Results 24 hrs Laboratory Tests Test 03/11/16 17:53 03/11/16 21:39 03/12/16 06:55 03/12/16 08:27 Bedside Glucose 79 86 74 Anion Gap 15 Blood Urea Nitrogen 42 H Calcium Level 8.2 L Carbon Dioxide Level 28 Chloride Level 95 L Creatinine 2.46 H Glucose Level 67 #L Iron Level 29 L Parathyroid Hormone (Intact) Percent Iron Saturation 12 L Potassium Level 3.9 Sodium Level 134 L Total Iron Binding Capacity 237 L Test 03/12/16 09:00 03/12/16 11:10 Urine Bilirubin NEGATIVE Urine Clarity CLEAR Urine Color LT. YELLOW Urine Glucose NEGATIVE Urine Hemoglobin 1+ H Urine Ketones NEGATIVE Urine Leukocyte Esterase NEGATIVE Urine Microscopic RBC 0-2 Urine Microscopic WBC 0-2 Urine Nitrite NEGATIVE Urine Random Creatinine 14.41 L Urine Random Sodium 59 Urine Specific [place] <=1.005 L Urine Total Protein Urine Urobilinogen 0.2 E.U./dL Urine pH 6.0 Bedside Glucose 137 Medications Medications Current Medications Ondansetron HCl (Zofran Inj) 4 mg Q6H PRN IV NAUSEA AND/OR VOMITING; Start at 16:00 Docusate Sodium (Colace) 100 mg BID PO Last administered on 03/12/16 08:30; Admin Dose 100 MG; Start 03/11/16 at 21:00 Pantoprazole (Protonix Tab) 40 mg DAILY@06 PO Last administered on 03/12/16 05 :47; Admin Dose 40 MG; Start 03/12/16 at 06:00 Fish Oil (Fish Oil) 1,000 mg BID PO Last administered on 03/12/16 08:30; Admin Dose 1,000 MG; Start 03/11/16 at 21:00 Miscellaneous Information 1 ea NOTE XX ; Start 03/11/16 at 16:30 Glucose (Glutose) 15 gm Q15M PRN PO DECREASED GLUCOSE; Start 03/11/16 at 16:30 Glucose (Glutose) 22.5 gm Q15M PRN PO DECREASED GLUCOSE; Start 03/11/16 at 16: 30 Dextrose (D50w Syringe) 25 ml Q15M PRN IV DECREASED GLUCOSE; Start 03/11/16 at 16:30 Dextrose (D50w Syringe) 50 ml Q15M PRN IV DECREASED GLUCOSE; Start 03/11/16 at 16:30 Glucagon (Glucagen) 1 mg Q15M PRN IM DECREASED GLUCOSE; Start 03/11/16 at 16:30 Glucose (Glutose) 15 gm Q15M PRN BUCCAL DECREASED GLUCOSE; Start 03/11/16 at 16 :30 Influenza Virus Vaccine (Fluzone) 0.5 ml ONCE ONCE IM* ; Start 03/14/16 at 09:00 ; Stop 03/14/16 at 09:01 Furosemide (Lasix) 40 mg DAILY@06 IV Last administered on 03/12/16 05:48; Admin Dose 40 MG; Start 03/12/16 at 06:00 Diagnostic Test (Pha) (Accucheck) 1 ea 02 XX ; Start 03/12/16 at 02:00 Heparin Sodium (Porcine) (Heparin (5000 Units/0.5 ml)) 5,000 unit BID SC Last administered on 03/12/16 08:25; Admin Dose 5,000 UNIT; Start 03/11/16 at 21:00 Carvedilol (Coreg) 12.5 mg BID PO Last administered on 03/12/16 08:32; Admin Dose 12.5 MG; Start 03/12/16 at 09:00 Procedures Procedures PROCEDURE: Retroperitoneal US. CLINICAL INDICATION: Renal insufficiency TECHNIQUE: Multiple sonographic images of the kidneys and retroperitoneum were obtained. The images were reviewed on a PACS workstation. COMPARISON: No prior studies are available for comparison. FINDINGS: The kidneys are normal in size, contour, cortical thickness. There is slightly increased echogenicity of the kidneys. The right kidney measures 10.7 cm. The left kidney measures 11.3 cm. No kidney stones are visualized. There is no evidence for hydronephrosis. The urinary bladder is normal. RPTAT: AA IMPRESSION: Slightly echogenic kidneys with no evidence of hydronephrosis. .Fortunato Saul MD, MD Date Time Electronically viewed and signed by .Fortunato Saul MD, on 03/11/2016 16: 42 DIANA HARRISON Mar 12, 2016 12:19
[2016-03-12] MEDS: SOD FERRIC GLUC COMPLX 125 MG in SOD CHLORIDE 0.9% 100 ML IVPB SCH (15:24)
[2016-03-12 23:50] LABS: PROTEIN, TOTAL 6.3 g/dL (6.1-8.1)
[2016-03-13] VITALS (13 sets, daily range): BP systolic 144–175; BP diastolic 68–84; PULSE 70–80; RESP 17–22
[2016-03-13] MEDS: LEVALBUTEROL (NEB) 0.63 MG/3 ML AMP INH SCH ×6 (01:00→21:18)
[2016-03-13] MEDS: ACCUCHECK XX SCH (02:00)
[2016-03-13] MEDS: PANTOPRAZOLE (EC) 40 MG TAB PO SCH (06:00)
[2016-03-13] MEDS: FUROSEMIDE 40 MG INJ IV SCH (06:00)
[2016-03-13] MEDS: INSULIN ASPART [NOVOLOG] 3 ML PEN SC SCH ×4 (07:55→21:00)
[2016-03-13 08:13] LABS: POTASSIUM 4.1 mmol/L (3.5-5.1)
[2016-03-13 08:16] LABS: CREATININE 2.23 mg/dl (0.61-1.24)
[2016-03-13 08:17] LABS: CALCIUM 8.5 mg/dl (8.4-10.2); MAGNESIUM 2.1 mg/dl (1.7-2.5); PHOSPHORUS 4.7 mg/dl (2.5-4.9)
[2016-03-13] MEDS: glipiZIDE 5 MG TAB PO SCH ×2 (08:37→18:18)
[2016-03-13] MEDS: FISH OIL 1,000 MG CAP PO SCH ×2 (08:37→21:30)
[2016-03-13] MEDS: SALMETEROL/FLUTICASONE 250/50 INHA INH SCH ×2 (08:38→21:29)
[2016-03-13] MEDS: HEPARIN 5,000 UNIT/0.5 ML SYG SC SCH ×2 (08:41→21:37)
[2016-03-13] MEDS: DOCUSATE SODIUM 100 MG CAP PO SCH ×2 (08:42→21:00)
[2016-03-13 08:43] LABS: BASOPHIL # 0.1 10^3/ul (0.0-0.1); BASOPHILS % 0.6 % (0.0-2.0); EOSINOPHILS # 0.1 10^3/ul (0.0-0.5); EOSINOPHILS % 1.5 % (0.0-7.0); HEMATOCRIT 29.1 % (42.0-52.0); LYMPHOCYTES # 1.5 10^3/ul (0.8-2.9); LYMPHOCYTES % 17.7 % (15.0-51.0); MEAN CORPUSCULAR HEMOGLOBIN 28.1 pg (29.0-33.0); MEAN CORPUSCULAR HGB CONC 34.4 g/dl (32.0-37.0); MEAN CORPUSCULAR VOLUME 81.7 fl (82.0-101.0); MEAN PLATELET VOLUME 9.8 fl (7.4-10.4); MONOCYTE # 0.9 10^3/ul (0.3-0.9); MONOCYTES % 10.9 % (0.0-11.0); NEUTROPHIL # 5.7 10^3/ul (1.6-7.5); NEUTROPHILS % 69.3 % (39.0-77.0); PLATELET COUNT 291 10^3/UL (140-440); RED BLOOD COUNT 3.56 10^6/ul (4.70-6.10); RED CELL DISTRIBUTION WIDTH 14.8 % (11.5-14.5); UNCORRECTED WBC 8.3 10^3/ul (4.8-10.8); WHITE BLOOD COUNT 8.3 10^3/ul (4.8-10.8)
--- NOTE | 2016-03-13 08:43 | CONS ---
Date/Time of Note Date/Time of Note DATE: 03/13/16 TIME: 08:42 Consultation Date/Type/Reason Admit Date/Time Mar 11, 2016 at 14:12 Initial Consult Date 24 HR Interval Summary Free Text/Dictation Additional Assessment/Plan Acute Systolic CHF exacerbation - slight symptoamtic improvement Severe Cardiomyopathy ARF/CKD HTN -EF 30-35% and will continue cardiac meds -no ARB/ACEI/Aldactone due to AKD -Continue gentle diureisis with monitoring of renal function -Continue BP management - increase bp meds and may add hydralazine -CXR clear Exam/Review of Systems Vital Signs Vitals Vital Signs Date Time Temp Pulse Resp B/P Pulse Ox O2 Delivery O2 Flow Rate FiO2 03/13/16 07:38 98.2 76 20 163/77 95 03/13/16 06:23 21 03/13/16 04:00 Room Air 03/12/16 09:27 2.0 Intake and Output 03/12/16 03/12/16 03/13/16 15:00 23:00 07:00 Intake Total 1240 ml Output Total 2450 ml 1800 ml Balance -1210 ml -1800 ml Exam Constitutional: alert, oriented Head: atraumatic, normocephalic Respiratory: clear to auscultation Cardiovascular: regular rate and rhythm, No irregular rhythm, No systolic murmur Gastrointestinal: non-tender, soft Extremities: No edema Results Result Diagram: 03/11/16 1115 03/13/16 0656 Results 24 hrs Laboratory Tests Test 03/12/16 09:00 03/12/16 11:10 03/12/16 17:42 03/12/16 21:28 Urine Bilirubin NEGATIVE Urine Clarity CLEAR Urine Color LT. YELLOW Urine Glucose NEGATIVE Urine Hemoglobin 1+ H Urine Ketones NEGATIVE Urine Leukocyte Esterase NEGATIVE Urine Microscopic RBC 0-2 Urine Microscopic WBC 0-2 Urine Nitrite NEGATIVE Urine Random Creatinine 14.41 L Urine Random Sodium 59 Urine Specific [place] <=1.005 L Urine Total Protein Urine Urobilinogen 0.2 E.U./dL Urine pH 6.0 Bedside Glucose 137 168 178 Test 03/13/16 06:56 03/13/16 07:43 Anion Gap 14 Blood Urea Nitrogen 34 H Calcium Level 8.5 Carbon Dioxide Level 30 Chloride Level 97 Creatine Kinase 189 Creatinine 2.23 H Glucose Level 115 # Magnesium Level 2.1 Phosphorus Level 4.7 Potassium Level 4.1 Sodium Level 137 Bedside Glucose 118 Medications Medications Current Medications Ondansetron HCl (Zofran Inj) 4 mg Q6H PRN IV NAUSEA AND/OR VOMITING; Start at 16:00 Docusate Sodium (Colace) 100 mg BID PO Last administered on 03/12/16 21:29; Admin Dose 100 MG; Start 03/11/16 at 21:00 Pantoprazole (Protonix Tab) 40 mg DAILY@06 PO Last administered on 03/13/16 06 :00; Admin Dose 40 MG; Start 03/12/16 at 06:00 Fish Oil (Fish Oil) 1,000 mg BID PO Last administered on 03/12/16 21:29; Admin Dose 1,000 MG; Start 03/11/16 at 21:00 Miscellaneous Information 1 ea NOTE XX ; Start 03/11/16 at 16:30 Glucose (Glutose) 15 gm Q15M PRN PO DECREASED GLUCOSE; Start 03/11/16 at 16:30 Glucose (Glutose) 22.5 gm Q15M PRN PO DECREASED GLUCOSE; Start 03/11/16 at 16: 30 Dextrose (D50w Syringe) 25 ml Q15M PRN IV DECREASED GLUCOSE; Start 03/11/16 at 16:30 Dextrose (D50w Syringe) 50 ml Q15M PRN IV DECREASED GLUCOSE; Start 03/11/16 at 16:30 Glucagon (Glucagen) 1 mg Q15M PRN IM DECREASED GLUCOSE; Start 03/11/16 at 16:30 Glucose (Glutose) 15 gm Q15M PRN BUCCAL DECREASED GLUCOSE; Start 03/11/16 at 16 :30 Influenza Virus Vaccine (Fluzone) 0.5 ml ONCE ONCE IM* ; Start 03/14/16 at 09:00 ; Stop 03/14/16 at 09:01 Furosemide (Lasix) 40 mg DAILY@06 IV Last administered on 03/13/16 06:00; Admin Dose 40 MG; Start 03/12/16 at 06:00 Diagnostic Test (Pha) (Accucheck) 1 ea 02 XX ; Start 03/12/16 at 02:00 Heparin Sodium (Porcine) (Heparin (5000 Units/0.5 ml)) 5,000 unit BID SC Last administered on 03/12/16 21:36; Admin Dose 5,000 UNIT; Start 03/11/16 at 21:00 Carvedilol 12.5 mg 12.5 mg BID PO Last administered on 03/12/16 21:29; Admin Dose 12.5 MG; Start 03/12/16 at 09:00 Ferric Sodium Gluconate Complex/ Sodium Chloride (Ferrlecit/NS) 110 ml @ 100 mls/hr Q24H IVPB Last administered on 03/12/16 15:24; Admin Dose 100 MLS/HR; Start 03/12/16 at 14:00; Stop 03/14/16 at 15:05 FRANKLIN PAREDES MD Mar 13, 2016 08:43
[2016-03-13 08:44] LABS: CONDITION 1; LH ANALYZER COMMENTS 1
--- NOTE | 2016-03-13 14:44 | PN ---
DATE: 03/13/2016 SUBJECTIVE: The patient is stable, no acute events overnight. No fevers, chills, nausea, vomiting, the patient's shortness of breath has improved. OBJECTIVE: VITAL SIGNS: Blood pressure is 163/77, respirations 20, pulse 76, temperature 98.2. I's AND O'S: The patient 1.2 liters in and 4.2 liters out. HEENT: Head is normocephalic. NECK: Supple. HEART: Regular rate. LUNGS: Show diminished breath sounds at base. ABDOMEN: Soft, nontender to palpation without rebound or guarding. EXTREMITIES: Negative for clubbing, cyanosis, +3 edema noted. DERMATOLOGIC: No rashes. MUSCULOSKELETAL: No joint effusions. NEUROLOGIC: No change in exam. MEDICATIONS: The patient's medications have been reviewed. LABORATORY DATA: Laboratory data from 03/12/2016 shows sodium 134, potassium 3.9, BUN 42, creatinin e 2.46. White count 15.3, hemoglobin 9.9, hematocrit 28.6, platelet count is 223. ASSESSMENT AND PLAN: 1. Nonoliguric acute kidney injury on top of chronic kidney disease stage III with a previous basel ine creatinine of 1.4 mg/dL. The etiology of acute kidney injury is possibly multifactorial second sujata to tubular injury, acute tubular necrosis, with possible underlying cardiorenal pathophysiology. Additionally, JORDEN inhibitor effect and ARB effect may also be contributing. The patient's urinaly sis does show coarse granular casts consistent with tubular injury, and the patient is clinically vo lume overloaded with a known ejection fraction of 30 to 35%. At this point, would continue current treatment plan. Continue diuretic therapy, monitor renal function closely. Monitor electrolytes cl osely. Please note that the patient's protein/creatinine ratio and albumin/creatinine ratio are als o pending to see if the patient has underlying nephrotic range of proteinuria. 3. Hyponatremia, etiology secondary to acute kidney injury causing decreased free water urinary exc retion. The patient's sodium levels have been improving. We will continue to monitor. Continue fr ee water restriction. 4. Mineral bone disorder. We will follow up calcium and phosphorus levels. PTH level is pending. 5. Anemia of chronic disease. Continue to monitor H and H levels. Give Epogen as needed. 6. Chronic kidney disease with likely underlying diabetic nephropathy. The patient currently in ac [place] kidney injury as stated above. Will continue current treatment plan. Additionally, we will bryan ntify the patient's proteinuria. Would defer any JORDEN inhibitor, ARB in the setting of acute kidney injury. 7. Volume overload with underlying acute systolic, diastolic heart failure. Continue current medic al management and follow up with cardiology. Continue diuretic regimen. 8. Acute hypoxic respiratory failure, improving. Continue to monitor. 9. Diabetes. Continue Accu-Cheks and sliding scale. 10. Hypertension. Continue current blood pressure regimen. Continue diuresis. 11. Dyslipidemia. Continue statin therapy. Dictated By: WILLIS KAPLAN DO NR/NTS Conf#: [id number] DID#: [id number]
[2016-03-13] MEDS: SOD FERRIC GLUC COMPLX 125 MG in SOD CHLORIDE 0.9% 100 ML IVPB SCH (15:17)
--- NOTE | 2016-03-13 16:23 | PN ---
Date/Time of Note Date/Time of Note DATE: 03/13/16 TIME: 16:19 Assessment/Plan VTE Prophylaxis VTE Prophylaxis Intervention: heparin Lines/Catheters [facility] Saline Lock Urinary Cath still in place: No Assessment/Plan Assessment/Plan 61 yo M with Acute resp insufficiency 2/2 #2: improved CHF exacerbation * Acute on chronic with both systolic and diastolic dysfxn Reactive Leucocytosis r/o Bronchitis : resolved Mild Rhabdomyolysis: resolved DM 2: good control HTN: Suboptimal control Dyslipidemia Acute renal insufficiency likely2/2 ATN from CHF versus ?meds: improving Underlying CKD likely 2/2 DM nephropathy Probable CAD Chronic CM likely ischemic EF 30-35% with diastolic dysfxn on last echo PLAN: Continue Telemetry monitoring Continue gentle diuresis Continue to Hold ACEi, ARBs, and metformin. Renally dose all meds. Serial labs. Resume home meds / add PRN hydralazine for better BP control and titrate meds accordingly in-house Bronchodilator therapy PRN pain control/ antiemetics/ supportive care Appreciate Cardiology and Nephrology consults Prophylaxis: Heparin and PPI Subjective 24 Hr Interval Summary Constitutional: no complaints Respiratory: no complaints Cardiovascular: no complaints Gastrointestinal: no complaints Exam/Review of Systems Vital Signs Vitals Vital Signs Date Time Temp Pulse Resp B/P Pulse Ox O2 Delivery O2 Flow Rate FiO2 03/13/16 15:25 98.4 73 20 164/79 95 03/13/16 13:49 21 03/13/16 04:00 Room Air 03/12/16 09:27 2.0 Intake and Output 03/12/16 03/12/16 03/13/16 15:00 23:00 07:00 Intake Total 1240 ml Output Total 2450 ml 1800 ml Balance -1210 ml -1800 ml Exam Gen: alert, oriented Psych: other (blank affect) Head: atraumatic, normocephalic Eyes: PERRL, icteric (?mildly) ENMT: mucosa pink and moist Neck: supple, No jvd Respiratory: diminished breath sounds, other (occ rhonchi) Cardiovascular: murmurs/extra sounds, regular rate and rhythm Gastrointestinal: bowel sounds, non-tender, soft Extremities: pitting pedal edema (2+) Skin: No rash or lesions Results Result Diagram: 03/13/16 0656 03/13/16 0656 Results 24 hrs Laboratory Tests Test 03/12/16 17:42 03/12/16 21:28 03/13/16 06:56 03/13/16 07:43 Bedside Glucose 168 178 118 Anion Gap 14 Basophils # 0.1 Basophils % 0.6 Blood Morphology Comment Blood Urea Nitrogen 34 H Calcium Level 8.5 Carbon Dioxide Level 30 Chloride Level 97 Creatine Kinase 189 Creatinine 2.23 H Eosinophils # 0.1 Eosinophils % 1.5 Glucose Level 115 # Hematocrit 29.1 L Hemoglobin 10.0 L Lymphocytes # 1.5 Lymphocytes % 17.7 Magnesium Level 2.1 Mean Corpuscular Hemoglobin 28.1 L Mean Corpuscular Hemoglobin Concent 34.4 Mean Corpuscular Volume 81.7 L Mean Platelet Volume 9.8 Monocytes # 0.9 Monocytes % 10.9 Neutrophils # 5.7 Neutrophils % 69.3 Nucleated Red Blood Cells # 0.0 Nucleated Red Blood Cells % 0.0 Phosphorus Level 4.7 Platelet Count 291 # Potassium Level 4.1 Red Blood Count 3.56 L Red Cell Distribution Width 14.8 H Sodium Level 137 White Blood Count 8.3 # Test 03/13/16 11:27 Bedside Glucose 200 Medications Medications Current Medications Ondansetron HCl (Zofran Inj) 4 mg Q6H PRN IV NAUSEA AND/OR VOMITING; Start at 16:00 Docusate Sodium (Colace) 100 mg BID PO Last administered on 03/13/16 08:42; Admin Dose 100 MG; Start 03/11/16 at 21:00 Pantoprazole (Protonix Tab) 40 mg DAILY@06 PO Last administered on 03/13/16 06 :00; Admin Dose 40 MG; Start 03/12/16 at 06:00 Fish Oil (Fish Oil) 1,000 mg BID PO Last administered on 03/13/16 08:37; Admin Dose 1,000 MG; Start 03/11/16 at 21:00 Miscellaneous Information 1 ea NOTE XX ; Start 03/11/16 at 16:30 Glucose (Glutose) 15 gm Q15M PRN PO DECREASED GLUCOSE; Start 03/11/16 at 16:30 Glucose (Glutose) 22.5 gm Q15M PRN PO DECREASED GLUCOSE; Start 03/11/16 at 16: 30 Dextrose (D50w Syringe) 25 ml Q15M PRN IV DECREASED GLUCOSE; Start 03/11/16 at 16:30 Dextrose (D50w Syringe) 50 ml Q15M PRN IV DECREASED GLUCOSE; Start 03/11/16 at 16:30 Glucagon (Glucagen) 1 mg Q15M PRN IM DECREASED GLUCOSE; Start 03/11/16 at 16:30 Glucose (Glutose) 15 gm Q15M PRN BUCCAL DECREASED GLUCOSE; Start 03/11/16 at 16 :30 Influenza Virus Vaccine (Fluzone) 0.5 ml ONCE ONCE IM* ; Start 03/14/16 at 09:00 ; Stop 03/14/16 at 09:01 Furosemide (Lasix) 40 mg DAILY@06 IV Last administered on 03/13/16 06:00; Admin Dose 40 MG; Start 03/12/16 at 06:00 Diagnostic Test (Pha) (Accucheck) 1 ea 02 XX ; Start 03/12/16 at 02:00 Heparin Sodium (Porcine) (Heparin (5000 Units/0.5 ml)) 5,000 unit BID SC Last administered on 03/13/16 08:41; Admin Dose 5,000 UNIT; Start 03/11/16 at 21:00 Carvedilol 12.5 mg 12.5 mg BID PO Last administered on 03/13/16 08:38; Admin Dose 12.5 MG; Start 03/12/16 at 09:00 Ferric Sodium Gluconate Complex/ Sodium Chloride (Ferrlecit/NS) 110 ml @ 100 mls/hr Q24H IVPB Last administered on 03/13/16 15:17; Admin Dose 100 MLS/HR; Start 03/12/16 at 14:00; Stop 03/14/16 at 15:05 DIANA HARRISON Mar 13, 2016 16:23
[2016-03-13] MEDS: IPRATROPIUM (NEB) 0.5 MG/2.5 ML AMP HHN PRN (21:19)
[2016-03-14] VITALS (15 sets, daily range): BP systolic 112–177; BP diastolic 54–80; PULSE 66–78; RESP 18–22
[2016-03-14] MEDS: LEVALBUTEROL (NEB) 0.63 MG/3 ML AMP INH SCH ×6 (01:50→20:31)
[2016-03-14] MEDS: IPRATROPIUM (NEB) 0.5 MG/2.5 ML AMP HHN PRN (01:50)
[2016-03-14] MEDS: ACCUCHECK XX SCH (02:00)
[2016-03-14] MEDS: FUROSEMIDE 40 MG INJ IV SCH (06:15)
[2016-03-14] MEDS: PANTOPRAZOLE (EC) 40 MG TAB PO SCH (06:15)
[2016-03-14 07:31] LABS: POTASSIUM 4.6 mmol/L (3.5-5.1)
[2016-03-14 07:33] LABS: CREATININE 1.89 mg/dl (0.61-1.24)
[2016-03-14 07:33] LABS: BASOPHILS % 0.4 % (0.0-2.0); EOSINOPHILS # 0.1 10^3/ul (0.0-0.5); EOSINOPHILS % 1.7 % (0.0-7.0); HEMOGLOBIN 10.3 g/dl (14.0-18.0); LYMPHOCYTES # 1.6 10^3/ul (0.8-2.9); LYMPHOCYTES % 18.5 % (15.0-51.0); MEAN CORPUSCULAR HEMOGLOBIN 27.9 pg (29.0-33.0); MEAN CORPUSCULAR HGB CONC 34.4 g/dl (32.0-37.0); MEAN PLATELET VOLUME 9.5 fl (7.4-10.4); MONOCYTE # 0.9 10^3/ul (0.3-0.9); MONOCYTES % 10.4 % (0.0-11.0); NEUTROPHIL # 6.1 10^3/ul (1.6-7.5); PLATELET COUNT 310 10^3/UL (140-440); RED CELL DISTRIBUTION WIDTH 14.7 % (11.5-14.5); UNCORRECTED WBC 8.8 10^3/ul (4.8-10.8); WHITE BLOOD COUNT 8.8 10^3/ul (4.8-10.8)
[2016-03-14 07:34] LABS: CALCIUM 8.8 mg/dl (8.4-10.2); PHOSPHORUS 4.2 mg/dl (2.5-4.9)
[2016-03-14 07:35] LABS: MAGNESIUM 1.9 mg/dl (1.7-2.5)
[2016-03-14 07:39] LABS: CONDITION 1; LH ANALYZER COMMENTS 1
[2016-03-14] MEDS ORDERED: METOLAZONE 2.5 MG TAB PO ONE (08:30)
[2016-03-14] MEDS: FISH OIL 1,000 MG CAP PO SCH ×2 (08:39→20:26)
[2016-03-14] MEDS: DOCUSATE SODIUM 100 MG CAP PO SCH ×2 (08:40→20:27)
[2016-03-14] MEDS: glipiZIDE 5 MG TAB PO SCH ×2 (08:40→17:05)
[2016-03-14] MEDS: SALMETEROL/FLUTICASONE 250/50 INHA INH SCH ×2 (08:40→20:25)
[2016-03-14] MEDS: HEPARIN 5,000 UNIT/0.5 ML SYG SC SCH ×2 (08:42→20:31)
[2016-03-14] MEDS: INSULIN ASPART [NOVOLOG] 3 ML PEN SC SCH ×4 (08:42→20:29)
[2016-03-14] MEDS ORDERED: INFLUENZA VIRUS VACCINE 0.5 ML SYG IM* ONE (09:00)
--- NOTE | 2016-03-14 10:02 | PN ---
DATE: 03/14/2016 SUBJECTIVE: The patient is clinically improved. No longer complaining of shortness of breath. The patient states his lower extremity edema has improved. No other acute events noted overnight. No h emoptysis, no hematemesis, no hematochezia. OBJECTIVE: VITAL SIGNS: Blood pressure is 160/77, respiration 18, pulse 70, temperature 98.2. I's AND O'S: The patient had 2 liters in, 800 out. HEENT: Head is normocephalic. NECK: Supple. HEART: Regular rate. LUNGS: Show diminished breath sounds at base. ABDOMEN: Soft, nontender to palpation without guarding. EXTREMITIES: Negative for clubbing, cyanosis. Positive edema. DERMATOLOGIC: No rashes. MUSCULOSKELETAL: No joint effusions. NEUROLOGIC: No change in exam. MEDICATIONS: The patient's medications have been reviewed. LABORATORY DATA: Shows sodium 138, potassium 4.6, chloride 97, BUN 31, creatinine 1.89. White coun t 8.8, hemoglobin 10.3, hematocrit 30.0, platelet count is 310. ASSESSMENT AND PLAN: 1. Nonoliguric acute kidney injury on top of chronic kidney disease stage III with a previous basel ine creatinine of 1.4 mg/dL. Etiology of acute kidney injury is multifactorial secondary to tubular injury with possible underlying cardiorenal pathophysiology. The patient's renal function has impr libby over the last 48 hours with supportive care and gentle diuresis. At this point, continue [facility] nt treatment plan, supportive care, renally dose all meds, continue Lasix. Will give an additional dose of metolazone today and monitor closely. 2. Chronic kidney disease with possible underlying diabetic nephropathy. The patient is currently in acute kidney injury as stated above, will continue current treatment plan. 3. A protein/creatinine ratio and albumin/creatinine ratio are pending. SPEP, UPEP are pending. Ot herwise, would defer JORDEN inhibitor ARB in the setting of acute kidney injury. Would otherwise praful nue disease factor modification. 4. Hypernatremia secondary to acute kidney injury, improved. 5. Mineral bone disorder. Continue to monitor calcium and phosphorous levels. Will follow up PTH l evel. 6. Anemia with iron deficiency. The patient is currently receiving IV iron. We will continue. 7. Volume overload secondary to acute systolic, diastolic heart failure. The patient clinically im proving. Continue current medical management. Follow up with cardiology. 8. Acute hypoxemic respiratory improved. Continue to monitor. 9. Diabetes, continue Accu-Cheks and sliding scale. 10. Hypertension. Continue current blood pressure regimen. Continue diuresis. 11. Dyslipidemia. Continue statin therapy. Dictated By: WILLIS KAPLAN DO NR/NTS Conf#: [id number] DID#: [id number]
--- NOTE | 2016-03-14 11:44 | PN ---
Date/Time of Note Date/Time of Note DATE: 03/14/16 TIME: 11:40 Assessment/Plan VTE Prophylaxis VTE Prophylaxis Intervention: heparin Lines/Catheters IV [facility]ter Type (from [facility]): Saline Lock Urinary Cath still in place: No Assessment/Plan Chief Complaint/Hosp Course Assessment/Plan 61 yo M with Acute resp insufficiency 2/2 #2: improved - Continue gentle diuresis CHF exacerbation - Acute on chronic with both systolic and diastolic dysfxn - improving. Reactive Leucocytosis r/o Bronchitis : resolved - monitor Mild Rhabdomyolysis: resolved - monitor DM 2: good control - ISS HTN: Suboptimal control - Resume home meds / add PRN hydralazine for better BP control and titrate meds accordingly in-house Dyslipidemia Acute renal insufficiency likely2/2 ATN from CHF versus ?meds: improving - f/u renal rec's, on IV lasix for now - f/u UO and BMP in AM - Continue to Hold ACEi, ARBs, and metformin. Renally dose all meds. Serial labs. Underlying CKD likely 2/2 DM nephropathy - monitor Probable CAD - monitor Chronic CM likely ischemic EF 30-35% with diastolic dysfxn on last echo Prophylaxis: Heparin and PPI Dispo: d/c in 24 hrs if renal fct improved. Problems: Subjective 24 Hr Interval Summary Free Text/Dictation Denies hematuria, dysuria, SOB. Sen by renal team in AM. Asking when he can go home. Exam/Review of Systems Vital Signs Vitals Vital Signs Date Time Temp Pulse Resp B/P Pulse Ox O2 Delivery O2 Flow Rate FiO2 03/14/16 11:09 97.8 18 177/69 96 03/14/16 09:42 75 03/13/16 21:32 21 03/13/16 04:00 Room Air 03/12/16 09:27 2.0 Intake and Output 03/13/16 03/13/16 03/14/16 15:00 23:00 07:00 Intake Total 1840 ml 240 ml Output Total 800 ml Balance 1840 ml -560 ml Exam Gen: alert, oriented Psych: other (blank affect) Head: atraumatic, normocephalic Eyes: PERRL, icteric (?mildly) ENMT: mucosa pink and moist Neck: supple, No jvd Respiratory: diminished breath sounds, other (occ rhonchi) Cardiovascular: murmurs/extra sounds, regular rate and rhythm Gastrointestinal: bowel sounds, non-tender, soft Extremities: trace pitting pedal edema B/L Skin: No rash or lesions Results Result Diagram: 03/14/16 0555 03/14/16 0550 Results 24 hrs Laboratory Tests Test 03/13/16 18:17 03/13/16 21:27 03/14/16 05:50 03/14/16 05:55 Bedside Glucose 209 161 Anion Gap 15 Blood Urea Nitrogen 31 H Calcium Level 8.8 Carbon Dioxide Level 31 Chloride Level 97 Creatinine 1.89 H Glucose Level 147 Magnesium Level 1.9 Phosphorus Level 4.2 Potassium Level 4.6 Sodium Level 138 Basophils # 0.0 Basophils % 0.4 Blood Morphology Comment Eosinophils # 0.1 Eosinophils % 1.7 Hematocrit 30.0 L Hemoglobin 10.3 L Lymphocytes # 1.6 Lymphocytes % 18.5 Mean Corpuscular Hemoglobin 27.9 L Mean Corpuscular Hemoglobin Concent 34.4 Mean Corpuscular Volume 81.0 L Mean Platelet Volume 9.5 Monocytes # 0.9 Monocytes % 10.4 Neutrophils # 6.1 Neutrophils % 69.0 Nucleated Red Blood Cells # 0.0 Nucleated Red Blood Cells % 0.0 Platelet Count 310 Red Blood Count 3.70 L Red Cell Distribution Width 14.7 H White Blood Count 8.8 Test 03/14/16 08:09 Bedside Glucose 180 Medications Medications Current Medications Ondansetron HCl (Zofran Inj) 4 mg Q6H PRN IV NAUSEA AND/OR VOMITING; Start at 16:00 Docusate Sodium (Colace) 100 mg BID PO Last administered on 03/14/16 08:40; Admin Dose 100 MG; Start 03/11/16 at 21:00 Pantoprazole (Protonix Tab) 40 mg DAILY@06 PO Last administered on 03/14/16 06 :15; Admin Dose 40 MG; Start 03/12/16 at 06:00 Fish Oil (Fish Oil) 1,000 mg BID PO Last administered on 03/14/16 08:39; Admin Dose 1,000 MG; Start 03/11/16 at 21:00 Miscellaneous Information 1 ea NOTE XX ; Start 03/11/16 at 16:30 Glucose (Glutose) 15 gm Q15M PRN PO DECREASED GLUCOSE; Start 03/11/16 at 16:30 Glucose (Glutose) 22.5 gm Q15M PRN PO DECREASED GLUCOSE; Start 03/11/16 at 16: 30 Dextrose (D50w Syringe) 25 ml Q15M PRN IV DECREASED GLUCOSE; Start 03/11/16 at 16:30 Dextrose (D50w Syringe) 50 ml Q15M PRN IV DECREASED GLUCOSE; Start 03/11/16 at 16:30 Glucagon (Glucagen) 1 mg Q15M PRN IM DECREASED GLUCOSE; Start 03/11/16 at 16:30 Glucose (Glutose) 15 gm Q15M PRN BUCCAL DECREASED GLUCOSE; Start 03/11/16 at 16 :30 Furosemide (Lasix) 40 mg DAILY@06 IV Last administered on 03/14/16 06:15; Admin Dose 40 MG; Start 03/12/16 at 06:00 Diagnostic Test (Pha) (Accucheck) 1 ea 02 XX ; Start 03/12/16 at 02:00 Heparin Sodium (Porcine) 5000 unit 5,000 unit BID SC Last administered on 08:42; Admin Dose 5,000 UNIT; Start 03/11/16 at 21:00 Ferric Sodium Gluconate Complex/ Sodium Chloride (Ferrlecit/NS) 110 ml @ 100 mls/hr Q24H IVPB Last administered on 03/13/16 15:17; Admin Dose 100 MLS/HR; Start 03/12/16 at 14:00; Stop 03/14/16 at 15:05 Carvedilol (Coreg) 25 mg BID PO Last administered on 03/14/16 08:40; Admin Dose 25 MG; Start 03/13/16 at 21:00 Hydralazine HCl (Apresoline) 10 mg Q6H PRN IV ELEVATED BLOOD PRESSURE; Start at 11:30 HEIDI LYNN Mar 14, 2016 11:44
[2016-03-14] MEDS: SOD FERRIC GLUC COMPLX 125 MG in SOD CHLORIDE 0.9% 100 ML IVPB SCH (14:19)
--- NOTE | 2016-03-14 16:45 | RADRPT ---
PROCEDURE: XR Chest. CLINICAL INDICATION: Shortness of breath. TECHNIQUE: Single frontal view. COMPARISON: 03/11/2016. FINDINGS: The lungs are clear. The heart is enlarged. There is no pleural effusion. There is no pneumothorax. IMPRESSION: 1. Cardiomegaly. 2. Clear lungs. 3. No change from 03/11/2016. RPTAT: QQ .Aren Wharton MD, MD Date Time Electronically viewed and signed by .Aren Wharton MD, MD on 03/14/2016 16:45 .R/
--- NOTE | 2016-03-14 18:02 | PN ---
DATE: 03/14/2016 CARDIOLOGY FOLLOWUP PROGRESS NOTE SUBJECTIVE: Patient with no chest pain or pressure. No palpitation. Denies orthopnea or PND to me . MEDICATIONS: Reviewed. PHYSICAL EXAMINATION: VITAL SIGNS: Temperature 98.8, heart rate of 67, blood pressure 160/75, respiration rate of 18, sat urating 98%. HEENT: Normocephalic, atraumatic. Pupils are equal. CARDIOVASCULAR: Regular rate and rhythm. PULMONARY: With no wheezes heard. GASTROINTESTINAL: Soft, nontender. EXTREMITIES: Positive lower extremity edema. NEUROLOGIC: Awake and alert. Responds appropriately. PSYCHIATRIC: Appears to be calm. LABORATORY: WBC of 8.8, hemoglobin 10.3, platelets of 310. Sodium 138, potassium 4.6, BUN of 31, c reatinine 1.89, glucose 147, magnesium 1.9. ASSESSMENT AND PLAN: 1. Congestive heart failure, systolic dysfunction. 2. Renal failure, acute on chronic. 3. Hypertension. 4. Diabetes. RECOMMENDATIONS: We will continue with high dose Coreg. Will check a chest x-ray today. Diuresis as per renal. Monitor on telemetry. Diabetic management will be continued. Dictated By: MANJEET JOSE/SANDRA Conf#: [id number] DID#: [id number]
[2016-03-14 18:20] LABS: MICROALBUMIN 24.2 mg/dL
[2016-03-15] VITALS (11 sets, daily range): BP systolic 128–165; BP diastolic 61–79; PULSE 64–75; RESP 18–20
[2016-03-15] MEDS: LEVALBUTEROL (NEB) 0.63 MG/3 ML AMP INH SCH ×3 (00:46→09:09)
[2016-03-15] MEDS: ACCUCHECK XX SCH (02:00)
[2016-03-15] MEDS: PANTOPRAZOLE (EC) 40 MG TAB PO SCH (05:19)
[2016-03-15] MEDS: FUROSEMIDE 40 MG INJ IV SCH (05:19)
[2016-03-15 07:24] LABS: BASOPHIL # 0.1 10^3/ul (0.0-0.1); BASOPHILS % 1.1 % (0.0-2.0); EOSINOPHILS # 0.2 10^3/ul (0.0-0.5); EOSINOPHILS % 1.8 % (0.0-7.0); HEMATOCRIT 30.4 % (42.0-52.0); HEMOGLOBIN 10.4 g/dl (14.0-18.0); LYMPHOCYTES # 1.6 10^3/ul (0.8-2.9); LYMPHOCYTES % 14.4 % (15.0-51.0); MEAN CORPUSCULAR HEMOGLOBIN 28.2 pg (29.0-33.0); MEAN CORPUSCULAR HGB CONC 34.1 g/dl (32.0-37.0); MEAN CORPUSCULAR VOLUME 82.5 fl (82.0-101.0); MEAN PLATELET VOLUME 9.2 fl (7.4-10.4); MONOCYTES % 9.3 % (0.0-11.0); NEUTROPHIL # 8.1 10^3/ul (1.6-7.5); NEUTROPHILS % 73.4 % (39.0-77.0); PLATELET COUNT 316 10^3/UL (140-440); RED BLOOD COUNT 3.69 10^6/ul (4.70-6.10); RED CELL DISTRIBUTION WIDTH 14.5 % (11.5-14.5); UNCORRECTED WBC 11.1 10^3/ul (4.8-10.8); WHITE BLOOD COUNT 11.1 10^3/ul (4.8-10.8)
[2016-03-15 07:36] LABS: ALBUMIN 3.2 g/dl (3.3-4.9)
[2016-03-15 07:37] LABS: POTASSIUM 4.1 mmol/L (3.5-5.1)
[2016-03-15 07:39] LABS: ALBUMIN/GLOBULIN RATIO 0.8; BILIRUBIN,INDIRECT 0.1 mg/dl (0-1.1); BILIRUBIN,TOTAL 0.1 mg/dl (0.2-1.3); CREATININE 1.84 mg/dl (0.61-1.24); TOTAL PROTEIN 7.2 g/dl (6.1-8.1)
[2016-03-15 07:40] LABS: CALCIUM 8.8 mg/dl (8.4-10.2)
[2016-03-15 07:48] LABS: CONDITION 1; LH ANALYZER COMMENTS 1
[2016-03-15] MEDS: glipiZIDE 5 MG TAB PO SCH ×2 (08:10→17:25)
[2016-03-15] MEDS: DOCUSATE SODIUM 100 MG CAP PO SCH ×2 (08:10→20:28)
[2016-03-15] MEDS: SALMETEROL/FLUTICASONE 250/50 INHA INH SCH ×2 (08:11→20:28)
[2016-03-15] MEDS: FISH OIL 1,000 MG CAP PO SCH ×2 (08:11→20:28)
[2016-03-15] MEDS: INSULIN ASPART [NOVOLOG] 3 ML PEN SC SCH ×4 (08:15→20:32)
[2016-03-15] MEDS: HEPARIN 5,000 UNIT/0.5 ML SYG SC SCH ×2 (08:15→20:30)
[2016-03-15] MEDS ORDERED: ACETAZOLAMIDE 500 MG INJ IV ONE (09:30)
[2016-03-15 10:05] LABS: MAGNESIUM 1.9 mg/dl (1.7-2.5); PHOSPHORUS 4.2 mg/dl (2.5-4.9)
--- NOTE | 2016-03-15 11:33 | PN ---
Date/Time of Note Date/Time of Note DATE: 03/15/16 TIME: 11:31 Assessment/Plan VTE Prophylaxis VTE Prophylaxis Intervention: heparin Lines/Catheters [facility]from [facility] Saline Lock Urinary Cath still in place: No Assessment/Plan Chief Complaint/Hosp Course Assessment/Plan 61 yo M with Acute resp insufficiency 2/2 #2: improved - Continue gentle diuresis CHF exacerbation - Acute on chronic with both systolic and diastolic dysfxn - improving. Reactive Leucocytosis r/o Bronchitis : resolved - monitor Mild Rhabdomyolysis: resolved - monitor DM 2: good control - ISS HTN: Suboptimal control - Resume home meds / add PRN hydralazine for better BP control and titrate meds accordingly in-house Dyslipidemia Acute renal insufficiency likely2/2 ATN from CHF versus ?meds: improving - f/u renal rec's, on IV lasix for now - f/u UO and BMP in AM - Continue to Hold ACEi, ARBs, and metformin. Renally dose all meds. Serial labs. Underlying CKD likely 2/2 DM nephropathy - monitor Probable CAD - monitor Chronic CM likely ischemic EF 30-35% with diastolic dysfxn on last echo Prophylaxis: Heparin and PPI Dispo: d/c in 24 hrs if renal fct improved and cleared by audit consultant teams.. Problems: Subjective 24 Hr Interval Summary Free Text/Dictation No acute events overnight, seen by renal and CV team today. Exam/Review of Systems Vital Signs Vitals Vital Signs Date Time Temp Pulse Resp B/P Pulse Ox O2 Delivery O2 Flow Rate FiO2 03/15/16 09:09 69 18 97 21 03/15/16 07:08 97.9 162/79 03/13/16 04:00 Room Air 03/12/16 09:27 2.0 Intake and Output 03/14/16 03/14/16 03/15/16 15:00 23:00 07:00 Intake Total 2100 ml Output Total 1400 ml Balance 700 ml Exam Gen: alert, oriented Psych: other (blank affect) Head: atraumatic, normocephalic Eyes: PERRL, icteric (?mildly) ENMT: mucosa pink and moist Neck: supple, No jvd Respiratory: less diminished breath sounds Cardiovascular: murmurs/extra sounds, regular rate and rhythm Gastrointestinal: bowel sounds, non-tender, soft Extremities: trace pitting pedal edema B/L Skin: No rash or lesions Results Result Diagram: 03/15/16 0610 03/15/16 0610 Results 24 hrs Laboratory Tests Test 03/14/16 12:08 03/14/16 16:54 03/14/16 20:21 03/15/16 01:37 Bedside Glucose 199 167 204 177 Test 03/15/16 06:10 03/15/16 06:57 03/15/16 07:24 Alanine Aminotransferase (ALT/SGPT) 37 Albumin 3.2 L Albumin/Globulin Ratio 0.80 Alkaline Phosphatase 135 H Anion Gap 13 Aspartate Amino Transf (AST/SGOT) 36 B-Type Natriuretic Peptide 2170 H Basophils # 0.1 Basophils % 1.1 Blood Morphology Comment Blood Urea Nitrogen 31 H Calcium Level 8.8 Carbon Dioxide Level 33 H Chloride Level 95 L Creatinine 1.84 H Direct Bilirubin 0.00 Eosinophils # 0.2 Eosinophils % 1.8 Globulin 4.00 H Glucose Level 165 Hematocrit 30.4 L Hemoglobin 10.4 L Indirect Bilirubin 0.1 Lymphocytes # 1.6 Lymphocytes % 14.4 L Magnesium Level 1.9 Mean Corpuscular Hemoglobin 28.2 L Mean Corpuscular Hemoglobin Concent 34.1 Mean Corpuscular Volume 82.5 Mean Platelet Volume 9.2 Monocytes # 1.0 H Monocytes % 9.3 Neutrophils # 8.1 H Neutrophils % 73.4 Nucleated Red Blood Cells # 0.0 Nucleated Red Blood Cells % 0.0 Phosphorus Level 4.2 Platelet Count 316 Potassium Level 4.1 Red Blood Count 3.69 L Red Cell Distribution Width 14.5 Sodium Level 137 Total Bilirubin 0.1 L Total Protein 7.2 White Blood Count 11.1 #H Lab Scanned Report REFERENCE LAB Bedside Glucose 174 Medications Medications Current Medications Ondansetron HCl (Zofran Inj) 4 mg Q6H PRN IV NAUSEA AND/OR VOMITING; Start at 16:00 Docusate Sodium (Colace) 100 mg BID PO Last administered on 03/15/16 08:10; Admin Dose 100 MG; Start 03/11/16 at 21:00 Pantoprazole (Protonix Tab) 40 mg DAILY@06 PO Last administered on 03/15/16 05 :19; Admin Dose 40 MG; Start 03/12/16 at 06:00 Fish Oil (Fish Oil) 1,000 mg BID PO Last administered on 03/15/16 08:11; Admin Dose 1,000 MG; Start 03/11/16 at 21:00 Miscellaneous Information 1 ea NOTE XX ; Start 03/11/16 at 16:30 Glucose (Glutose) 15 gm Q15M PRN PO DECREASED GLUCOSE; Start 03/11/16 at 16:30 Glucose (Glutose) 22.5 gm Q15M PRN PO DECREASED GLUCOSE; Start 03/11/16 at 16: 30 Dextrose (D50w Syringe) 25 ml Q15M PRN IV DECREASED GLUCOSE; Start 03/11/16 at 16:30 Dextrose (D50w Syringe) 50 ml Q15M PRN IV DECREASED GLUCOSE; Start 03/11/16 at 16:30 Glucagon (Glucagen) 1 mg Q15M PRN IM DECREASED GLUCOSE; Start 03/11/16 at 16:30 Glucose (Glutose) 15 gm Q15M PRN BUCCAL DECREASED GLUCOSE; Start 03/11/16 at 16 :30 Furosemide (Lasix) 40 mg DAILY@06 IV Last administered on 03/15/16 05:19; Admin Dose 40 MG; Start 03/12/16 at 06:00 Diagnostic Test (Pha) (Accucheck) 1 ea 02 XX ; Start 03/12/16 at 02:00 Heparin Sodium (Porcine) (Heparin (5000 Units/0.5 ml)) 5,000 unit BID SC Last administered on 03/15/16 08:15; Admin Dose 5,000 UNIT; Start 03/11/16 at 21:00 Carvedilol (Coreg) 25 mg BID PO Last administered on 03/15/16 08:11; Admin Dose 25 MG; Start 03/13/16 at 21:00 Hydralazine HCl (Apresoline) 10 mg Q6H PRN IV ELEVATED BLOOD PRESSURE; Start at 11:30 HEIDI LYNN Mar 15, 2016 11:33
--- NOTE | 2016-03-15 11:47 | PN ---
DATE: 03/15/2016 SUBJECTIVE: The patient is clinically improving, no longer complaining of shortness of breath. The patient continues to have lower extremity edema and swelling, but he states that it is improving. No other events noted. OBJECTIVE: VITAL SIGNS: Blood pressure is 162/79, respirations 19, pulse 76, temperature is 97.9. I's and O's 2.1 liters in, 1.5 liters out, not adequately recorded. HEENT: Head is normocephalic. NECK: Supple. HEART: Regular rate. LUNGS: Show diminished breath sounds at base, otherwise clear. ABDOMEN: Soft, nontender to palpation without rebound or guarding. EXTREMITIES: Negative for clubbing, cyanosis. Positive edema. DERMATOLOGIC: No rashes. MUSCULOSKELETAL: No joint effusions. NEUROLOGIC: No change in exam. MEDICATIONS: The patient's medications have been reviewed. LABORATORY DATA: Showed sodium 137, potassium 4.4, chloride 95, bicarbonate 33, BUN 31, creatinine 1.84. BNP is 2000. White count 11.1, hemoglobin 10.4, hematocrit 30.4, platelet count is 145. The patient's microalbumin creatinine ratio is 1.3 grams per gram of creatinine and protein creatinine ratio is 2 g per gram of creatinine, approximately. ASSESSMENT AND PLAN: 1. Nonoliguric acute kidney injury on top of chronic kidney disease stage III with a previous basel ine creatinine around 1.4 mg/dL. Etiology of acute kidney injury is secondary to acute tubular necr osis with underlying cardiorenal pathophysiology. The patient's renal function continues to improve appears to have stabilized around the last 24 hours. The patient's renal function is near baseline . At this point, continue current treatment plan. Continue diuretic therapy. Otherwise, continue supportive care, renally dose all meds. 2. Chronic kidney disease, likely due to underlying diabetic nephropathy. The patient's protein/cr eatinine ratio and albumin/creatinine ratio shows approximately 2 grams per gram of creatinine of 1. 3 grams per gram of creatinine. At this point, would continue to treat acute kidney injury as state d above, but otherwise recommended disease factor modification, good glycemic and blood pressure con trol. Once the patient's acute kidney injury has resolved, would recommend to reintroduce JORDEN inhib itor. 3. Hyponatremia, resolved. 4. Mineral bone disorder, continue to monitor calcium and phosphorus levels. PTH level is pending. 5. Anemia of iron deficiency. Continue IV iron. 6. Volume overload secondary to systolic, diastolic heart failure. Continue medical management and follow up with cardiology. Continue diuretic therapy. 7. Alkalosis, likely due to chloride deficiency from recent diuretic therapy. Will give the patien t 1 dose of Diamox x1 today. 8. Acute hypoxemic respiratory failure, improved. 9. Diabetes, continue Accu-Cheks and sliding scale. 10. Hypertension. Continue current blood pressure regimen. Continue diuresis. 11. Dyslipidemia. Continue statin therapy. Dictated By: WILLIS CONTEH/NTS Conf#: [id number] DID#: [id number]
[2016-03-15] MEDS: hydrALAzine 20 MG INJ IV PRN (11:58)
[2016-03-15] MEDS ORDERED: LEVALBUTEROL (NEB) 0.63 MG/3 ML AMP INH PRN (12:00)
--- NOTE | 2016-03-15 17:26 | PN ---
DATE: 03/15/2016 CARDIOLOGY FOLLOWUP SUBJECTIVE: Discussed with the staff. Rhythm strip was reviewed. Discussed with the patient's fam huseyin at the bedside. The patient remains in sinus rhythm. No chest pain or pressure. Breathing has remained stable. MEDICATIONS: Reviewed. PHYSICAL EXAMINATION: VITAL SIGNS: Temperature 98, heart rate of 66, blood pressure 128/61, respiration rate of 19, satur ating 96%. HEENT: Normocephalic, atraumatic. Pupils are equal. CARDIOVASCULAR: Regular rate and rhythm. PULMONARY: With no wheezes anteriorly. Minimal rhonchi at the base. GASTROINTESTINAL: Soft, nontender. EXTREMITIES: Trivial edema. NEUROLOGIC: Awake, responds appropriately. PSYCHIATRIC: Appears to be calm and pleasant. LABORATORY: WBC of 11.1, hemoglobin 10.4, platelets of 316. Sodium 137, potassium 4.1, BUN 31, cre atinine 1.84, glucose of 165. ASSESSMENT AND PLAN: 1. Congestive heart failure, chronic, currently stable. 2. Severe systolic dysfunction. 3. Renal failure, acute on chronic. 4. Hypertension. 5. Diabetes. RECOMMENDATIONS: Diuresis will be managed as per renal team. Continue with the Coreg. Diabetic ma chip will be continued as well. Dictated By: MANJEET WHITAKER MD AV/NTS Conf#: [id number] DID#: [id number] CC: SHEREE LANCASTER MD; WILLIS KAPLAN DO;*EndCC*
[2016-03-16] VITALS (12 sets, daily range): BP systolic 115–169; BP diastolic 2–81; PULSE 64–77; RESP 18–20
[2016-03-16] MEDS: ACCUCHECK XX SCH (02:00)
[2016-03-16] MEDS: FUROSEMIDE 40 MG INJ IV SCH (05:34)
[2016-03-16] MEDS: PANTOPRAZOLE (EC) 40 MG TAB PO SCH (05:34)
[2016-03-16 07:03] LABS: BASOPHIL # 0.1 10^3/ul (0.0-0.1); BASOPHILS % 0.6 % (0.0-2.0); EOSINOPHILS # 0.2 10^3/ul (0.0-0.5); EOSINOPHILS % 1.9 % (0.0-7.0); HEMATOCRIT 33.7 % (42.0-52.0); HEMOGLOBIN 11.3 g/dl (14.0-18.0); LYMPHOCYTES # 1.6 10^3/ul (0.8-2.9); LYMPHOCYTES % 14.5 % (15.0-51.0); MEAN CORPUSCULAR HGB CONC 33.5 g/dl (32.0-37.0); MEAN CORPUSCULAR VOLUME 83.4 fl (82.0-101.0); MEAN PLATELET VOLUME 8.7 fl (7.4-10.4); MONOCYTE # 0.9 10^3/ul (0.3-0.9); MONOCYTES % 8.4 % (0.0-11.0); NEUTROPHIL # 8.3 10^3/ul (1.6-7.5); NEUTROPHILS % 74.6 % (39.0-77.0); PLATELET COUNT 328 10^3/UL (140-440); RED BLOOD COUNT 4.04 10^6/ul (4.70-6.10); RED CELL DISTRIBUTION WIDTH 14.9 % (11.5-14.5); UNCORRECTED WBC 11.2 10^3/ul (4.8-10.8); WHITE BLOOD COUNT 11.2 10^3/ul (4.8-10.8)
[2016-03-16 07:06] LABS: CONDITION 1; LH ANALYZER COMMENTS 1
[2016-03-16 07:22] LABS: POTASSIUM 3.8 mmol/L (3.5-5.1)
[2016-03-16 07:24] LABS: CREATININE 2.08 mg/dl (0.61-1.24)
[2016-03-16 07:25] LABS: CALCIUM 9.2 mg/dl (8.4-10.2); PHOSPHORUS 5.4 mg/dl (2.5-4.9)
[2016-03-16 07:29] LABS: ALBUMIN 2.7 g/dL (3.8-4.8)
[2016-03-16] MEDS: INSULIN ASPART [NOVOLOG] 3 ML PEN SC SCH ×4 (08:50→21:00)
[2016-03-16] MEDS: HEPARIN 5,000 UNIT/0.5 ML SYG SC SCH ×2 (08:51→23:43)
[2016-03-16] MEDS: hydrALAzine 20 MG INJ IV PRN (08:53)
[2016-03-16] MEDS: DOCUSATE SODIUM 100 MG CAP PO SCH ×2 (08:54→21:55)
[2016-03-16] MEDS: ISOSORBIDE MONONITRATE(SR)30 MG TAB PO SCH (08:54)
[2016-03-16] MEDS: glipiZIDE 5 MG TAB PO SCH (08:54)
[2016-03-16] MEDS: FISH OIL 1,000 MG CAP PO SCH ×2 (08:54→21:55)
[2016-03-16] MEDS: SALMETEROL/FLUTICASONE 250/50 INHA INH SCH ×2 (08:55→22:01)
--- NOTE | 2016-03-16 11:01 | PN ---
DATE: 03/16/2016 CARDIOLOGY FOLLOWUP SUBJECTIVE: Discussed with the staff. Rhythm strip was reviewed and discussed with Dr. Shafer. The patient remains in sinus rhythm. Denies any chest pain or pressure, no shortness of breath or p alpitations to me. MEDICATIONS: Reviewed. PHYSICAL EXAMINATION: VITAL SIGNS: Temperature 97.9, heart rate of 68, blood pressure 150/80, respiration rate of 20, sat urating 96%. HEENT: Normocephalic, atraumatic. No acute distress. Pupils equal and round. CARDIOVASCULAR: Regular rate and rhythm, systolic murmur. PULMONARY: With minimal rhonchi at the base. GASTROINTESTINAL: Soft, nontender. EXTREMITIES: Positive lower extremity edema. NEUROLOGIC: Awake and responds appropriately. PSYCHIATRIC: Appears to be calm and pleasant. LABORATORY: Sodium 137, potassium 3.8, BUN of 32, creatinine of 2.08, glucose of 181. ASSESSMENT AND PLAN: 1. Congestive heart failure, chronic, currently stable secondary to systolic dysfunction. 2. Severe LV dysfunction. 3. Renal failure, acute on chronic. Being worked up by Renal. 4. Hypertension. 5. Diabetes. RECOMMENDATIONS: 1. Carvedilol will be continued. 2. Diuresis as per renal, will add hydralazine as a combination to his regimen for afterload preloa d reduction, given his LV dysfunction. 3. Follow up renal function. Dictated By: MANJEET WHITAKER MD AV/SANDRA Conf#: [id number] DID#: [id number] CC: WILLIS SHAFER DO;*EndCC*
--- NOTE | 2016-03-16 11:19 | PN ---
DATE: 03/16/2016 SUBJECTIVE: The patient is stable. No acute events. No hemoptysis, hematemesis or hematochezia. The patient's shortness of breath has improved. No other events noted. PHYSICAL EXAMINATION: VITAL SIGNS: Shows blood pressure 150/76, respiration 18, pulse 72, temperature 98.7. HEENT: Head is normocephalic. NECK: Supple. HEART: Regular rate. LUNGS: Show diminished breath sounds at the base. ABDOMEN: Soft, nontender to palpation without rebound or guarding. EXTREMITIES: Negative for clubbing, cyanosis. Trace edema. DERMATOLOGIC: No rashes. MUSCULOSKELETAL: No joint effusions. NEUROLOGIC: No change. MEDICATIONS: The patient's medications have been reviewed. LABORATORY DATA: Shows sodium 137, potassium 3.8, chloride 96, BUN 32, creatinine 2.08, phosphorus 5 .4, white count 11.2, hemoglobin 11.3, hematocrit 33.7, platelet count is 328. ASSESSMENT AND PLAN: 1. Nonoliguric acute kidney injury on top of chronic kidney disease stage 3 with previous baseline creatinine around 1.4 mg/dL. Etiology of acute kidney injury was secondary to acute tubular necros is with underlying cardiorenal syndrome. The patient's renal function has been fluctuating and has declined in the last 24 hours, likely from diuretic therapy. At this point, will hold diuretics. W ould otherwise continue supportive care, renally dose all meds, avoid nephrotoxins. 2. Chronic kidney disease, likely due to diabetic nephropathy. The patient's protein/creatinine ra marielos and albumin/creatinine ratio are 2 grams and 1.4 grams per gram of creatinine respectively. The patient's urinalysis is otherwise bland. The patient's SPEP was negative. At this point, would co ntinue to treat acute kidney injury as stated above. Continue disease factor modification. Will co ntinue otherwise risk factor modification, good glycemic and blood pressure control. 3. Mineral bone disorder. Continue to monitor calcium and phosphorus levels. 4. Anemia of iron deficiency. Continue IV iron. 5. Volume overload due to acute systolic, diastolic heart failure. Continue current medical manage ment. Patient is near euvolemic status. 6. Alkalosis secondary to diuretic therapy . The patient is status post Diamox, improved. Continue to monitor. 7. Acute hypoxemic respiratory failure secondary to congestive heart failure, improved. 8. Diabetes. Continue Accu-Cheks and sliding scale. 9. Hypertension. Continue current blood pressure regimen. 10. Dyslipidemia. Continue statin therapy. Dictated By: WILLIS CONTEH/SANDRA Conf#: [id number] DID#: [id number]
--- NOTE | 2016-03-16 11:29 | PN ---
Date/Time of Note Date/Time of Note DATE: 03/16/16 TIME: 11:27 Assessment/Plan VTE Prophylaxis VTE Prophylaxis Intervention: heparin Lines/Catheters IV [facility]from [facility] Saline Lock Urinary Cath still in place: No Assessment/Plan Chief Complaint/Hosp Course Assessment/Plan 61 yo M with Acute resp insufficiency 2/2 #2:improved - Continue gentle diuresis CHF exacerbation - Acute on chronic with both systolic and diastolic dysfxn - improving. Reactive Leucocytosis r/o Bronchitis : resolved - monitor Mild Rhabdomyolysis: resolved - monitor DM 2: good control - ISS HTN: Suboptimal control - Resume home meds / add PRN hydralazine for better BP control and titrate meds accordingly in-house Dyslipidemia Acute renal insufficiency likely2/2 ATN from CHF versus ?meds:Cr a bit more elevated today - f/u renal rec's, on PO lasix for now - f/u UO and BMP in AM - Continue to Hold ACEi, ARBs, and metformin. Renally dose all meds. Serial labs. Underlying CKD likely 2/2 DM nephropathy - monitor Probable CAD - monitor Chronic CM likely ischemic EF 30-35% with diastolic dysfxn on last echo Prophylaxis: Heparin and PPI Problems: Subjective 24 Hr Interval Summary Free Text/Dictation Pt with some mild EAST and dizziness symptoms today. Exam/Review of Systems Vital Signs Vitals Vital Signs Date Time Temp Pulse Resp B/P Pulse Ox O2 Delivery O2 Flow Rate FiO2 03/16/16 08:16 72 03/16/16 07:42 98.5 20 115/56 93 03/15/16 09:09 21 03/13/16 04:00 Room Air 03/12/16 09:27 2.0 Intake and Output 03/15/16 03/15/16 03/16/16 15:00 23:00 07:00 Intake Total 800 ml Output Total 1200 ml Balance -400 ml Exam Gen: alert, oriented Head: atraumatic, normocephalic Eyes: PERRL, EOMI ENMT: mucosa pink and moist Neck: supple, No jvd Respiratory: less diminished breath sounds Cardiovascular: murmurs/extra sounds, regular rate and rhythm Gastrointestinal: bowel sounds, non-tender, soft Extremities: trace pitting pedal edema B/L Skin: No rash or lesions Results Result Diagram: 03/16/16 0610 03/16/16 0610 Results 24 hrs Laboratory Tests Test 03/15/16 11:31 03/15/16 17:24 03/15/16 20:25 03/16/16 02:31 Bedside Glucose 225 H 151 218 195 Test 03/16/16 06:10 03/16/16 08:47 Anion Gap 16 Basophils # 0.1 Basophils % 0.6 Blood Morphology Comment Blood Urea Nitrogen 32 H Calcium Level 9.2 Carbon Dioxide Level 29 Chloride Level 96 L Creatinine 2.08 H Eosinophils # 0.2 Eosinophils % 1.9 Glucose Level 181 Hematocrit 33.7 L Hemoglobin 11.3 L Lymphocytes # 1.6 Lymphocytes % 14.5 L Magnesium Level 2.0 Mean Corpuscular Hemoglobin 28.0 L Mean Corpuscular Hemoglobin Concent 33.5 Mean Corpuscular Volume 83.4 Mean Platelet Volume 8.7 Monocytes # 0.9 Monocytes % 8.4 Neutrophils # 8.3 H Neutrophils % 74.6 Nucleated Red Blood Cells # 0.0 Nucleated Red Blood Cells % 0.0 Phosphorus Level 5.4 H Platelet Count 328 Potassium Level 3.8 Red Blood Count 4.04 L Red Cell Distribution Width 14.9 H Sodium Level 137 White Blood Count 11.2 H Bedside Glucose 179 Medications Medications Current Medications Ondansetron HCl (Zofran Inj) 4 mg Q6H PRN IV NAUSEA AND/OR VOMITING; Start at 16:00 Docusate Sodium (Colace) 100 mg BID PO Last administered on 03/16/16 08:54; Admin Dose 100 MG; Start 03/11/16 at 21:00 Pantoprazole (Protonix Tab) 40 mg DAILY@06 PO Last administered on 03/16/16 05: 34; Admin Dose 40 MG; Start 03/12/16 at 06:00 Fish Oil (Fish Oil) 1,000 mg BID PO Last administered on 03/16/16 08:54; Admin Dose 1,000 MG; Start 03/11/16 at 21:00 Miscellaneous Information 1 ea NOTE XX ; Start 03/11/16 at 16:30 Glucose (Glutose) 15 gm Q15M PRN PO DECREASED GLUCOSE; Start 03/11/16 at 16:30 Glucose (Glutose) 22.5 gm Q15M PRN PO DECREASED GLUCOSE; Start 03/11/16 at 16: 30 Dextrose (D50w Syringe) 25 ml Q15M PRN IV DECREASED GLUCOSE; Start 03/11/16 at 16:30 Dextrose (D50w Syringe) 50 ml Q15M PRN IV DECREASED GLUCOSE; Start 03/11/16 at 16:30 Glucagon (Glucagen) 1 mg Q15M PRN IM DECREASED GLUCOSE; Start 03/11/16 at 16:30 Glucose (Glutose) 15 gm Q15M PRN BUCCAL DECREASED GLUCOSE; Start 03/11/16 at 16 :30 Diagnostic Test (Pha) (Accucheck) 1 ea 02 XX ; Start 03/12/16 at 02:00 Heparin Sodium (Porcine) (Heparin (5000 Units/0.5 ml)) 5,000 unit BID SC Last administered on 03/16/16 08:51; Admin Dose 5,000 UNIT; Start 03/11/16 at 21:00 Carvedilol (Coreg) 25 mg BID PO Last administered on 03/16/16 08:54; Admin Dose 25 MG; Start 03/13/16 at 21:00 Hydralazine HCl (Apresoline) 10 mg Q6H PRN IV ELEVATED BLOOD PRESSURE Last administered on 03/16/16 08:53; Admin Dose 10 MG; Start 03/14/16 at 11:30 Hydralazine HCl (Apresoline) 25 mg Q8 PO Last administered on 03/16/16 09:06; Admin Dose 25 MG; Start 03/16/16 at 08:00 Isosorbide Mononitrate (Imdur) 30 mg DAILY PO Last administered on 03/16/16 08: 54; Admin Dose 30 MG; Start 03/16/16 at 09:00 HEIDI LYNN Mar 16, 2016 11:29
[2016-03-16] MEDS ORDERED: HYDROCODONE/APAP (5/325) TAB PO PRN (11:30)
[2016-03-16] MEDS ORDERED: ACETAMINOPHEN 325 MG TAB PO PRN (11:30)
[2016-03-16 15:52] LABS: CREATININE, RANDOM URINE 44 mg/dL (20-370); PROTEIN/CREATININE RATIO 3045 mg/g creat (22-128)
[2016-03-17] VITALS (12 sets, daily range): BP systolic 125–152; BP diastolic 3–74; PULSE 62–75; RESP 19–20
[2016-03-17] MEDS: ACCUCHECK XX SCH (02:00)
[2016-03-17] MEDS: PANTOPRAZOLE (EC) 40 MG TAB PO SCH (06:15)
[2016-03-17] MEDS: INSULIN ASPART [NOVOLOG] 3 ML PEN SC SCH ×4 (07:55→20:30)
[2016-03-17 08:24] LABS: BASOPHILS % 0.4 % (0.0-2.0); EOSINOPHILS # 0.2 10^3/ul (0.0-0.5); EOSINOPHILS % 1.6 % (0.0-7.0); HEMATOCRIT 34.4 % (42.0-52.0); HEMOGLOBIN 11.5 g/dl (14.0-18.0); LYMPHOCYTES # 1.8 10^3/ul (0.8-2.9); LYMPHOCYTES % 14.5 % (15.0-51.0); MEAN CORPUSCULAR HGB CONC 33.4 g/dl (32.0-37.0); MEAN CORPUSCULAR VOLUME 83.8 fl (82.0-101.0); MEAN PLATELET VOLUME 8.6 fl (7.4-10.4); MONOCYTE # 0.8 10^3/ul (0.3-0.9); MONOCYTES % 6.2 % (0.0-11.0); NEUTROPHIL # 9.5 10^3/ul (1.6-7.5); NEUTROPHILS % 77.3 % (39.0-77.0); PLATELET COUNT 347 10^3/UL (140-440); RED CELL DISTRIBUTION WIDTH 15.3 % (11.5-14.5); UNCORRECTED WBC 12.2 10^3/ul (4.8-10.8); WHITE BLOOD COUNT 12.2 10^3/ul (4.8-10.8)
[2016-03-17 08:30] LABS: CONDITION 1; LH ANALYZER COMMENTS 1
[2016-03-17 08:33] LABS: POTASSIUM 4.2 mmol/L (3.5-5.1)
[2016-03-17 08:35] LABS: CREATININE 2.26 mg/dl (0.61-1.24)
[2016-03-17 08:36] LABS: CALCIUM 8.9 mg/dl (8.4-10.2); MAGNESIUM 2.1 mg/dl (1.7-2.5); PHOSPHORUS 4.9 mg/dl (2.5-4.9)
[2016-03-17] MEDS ORDERED: FUROSEMIDE 20 MG TAB PO SCH (09:00)
[2016-03-17] MEDS: SALMETEROL/FLUTICASONE 250/50 INHA INH SCH ×2 (09:09→20:23)
[2016-03-17] MEDS: FISH OIL 1,000 MG CAP PO SCH ×2 (09:11→20:24)
[2016-03-17] MEDS: ISOSORBIDE MONONITRATE(SR)30 MG TAB PO SCH (09:12)
[2016-03-17] MEDS: DOCUSATE SODIUM 100 MG CAP PO SCH ×2 (09:12→20:25)
[2016-03-17] MEDS: HEPARIN 5,000 UNIT/0.5 ML SYG SC SCH ×2 (09:19→20:30)
--- NOTE | 2016-03-17 09:25 | PN ---
DATE: 03/17/2016 CARDIOLOGY FOLLOWUP PROGRESS NOTE SUBJECTIVE: Discussed with the staff. Rhythm strip was reviewed. The patient remains in sinus rhy thm. No chest pain or pressure. No palpitation. The patient's breathing has improved. Denies any PND, orthopnea to me. MEDICATIONS: Reviewed as per medical reconciliation, personally reviewed. PHYSICAL EXAMINATION: VITAL SIGNS: Temperature 98.4, heart rate of 70, blood pressure 126/60, respiratory rate of 19, sat urating 97%. HEENT: Normocephalic, atraumatic. Pupils equal and round. CARDIOVASCULAR: Regular rate and rhythm. PULMONARY: No wheezes heard. No rhonchi. GASTROINTESTINAL: Soft, nontender. EXTREMITIES: With trivial lower extremity. NEUROLOGIC: Awake, alert. PSYCHIATRIC: Appears to be calm, pleasant. LABORATORY: Glucose this morning is 244. ASSESSMENT AND PLAN: 1. Severe cardiomyopathy. 2. Congestive heart failure, currently appears to be stable. 3. Renal failure, acute on chronic. 4. Anemia. 5. Diabetes. 6. Hypertension. RECOMMENDATIONS: We will continue with current cardiac care including carvedilol and Isordil and hy dralazine combination. Diabetic management as per internal medicine. We will follow up renal funct ion and follow up recommendations of the renal. Dictated By: MANJEET JOSE/SANDRA Conf#: [id number] DID#: [id number] CC: WILLIS KAPLAN DO;*EndCC*
--- NOTE | 2016-03-17 11:49 | PN ---
Date/Time of Note Date/Time of Note DATE: 03/17/16 TIME: 11:47 Assessment/Plan VTE Prophylaxis VTE Prophylaxis Intervention: heparin Lines/Catheters [facility] Saline Lock Urinary Cath still in place: No Assessment/Plan Chief Complaint/Hosp Course Assessment/Plan 61 yo M with Acute resp insufficiency 2 #2:improved - Continue gentle diuresis CHF exacerbation - Acute on chronic with both systolic and diastolic dysfxn - improving. Reactive Leucocytosis r/o Bronchitis : resolved - monitor Mild Rhabdomyolysis: resolved - monitor DM 2: good control - ISS HTN: Suboptimal control - Resume home meds / add PRN hydralazine for better BP control and titrate meds accordingly in-house Dyslipidemia Acute renal insufficiency likely2/2 ATN from CHF versus ?meds:Crstill more elevated. - f/u renal rec's, on PO lasix for now - f/u UO and BMP in AM - Continue to Hold ACEi, ARBs, and metformin. Renally dose all meds. Serial labs. Underlying CKD likely 2/2 DM nephropathy - monitor Probable CAD - monitor Chronic CM likely ischemic EF 30-35% with diastolic dysfxn on last echo Prophylaxis: Heparin and PPI Problems: Subjective 24 Hr Interval Summary Free Text/Dictation No acute events overnight. Exam/Review of Systems Vital Signs Vitals Vital Signs Date Time Temp Pulse Resp B/P Pulse Ox O2 Delivery O2 Flow Rate FiO2 03/17/16 09:43 66 03/17/16 08:18 98.4 19 126/60 97 03/16/16 17:32 21 Intake and Output 03/16/16 03/16/16 03/17/16 15:00 23:00 07:00 Intake Total 1480 ml 350 ml Output Total 8 ml 950 ml Balance 1472 ml -600 ml Exam Gen: alert, oriented Head: atraumatic, normocephalic Eyes: PERRL, EOMI ENMT: mucosa pink and moist Neck: supple, No jvd Respiratory: less diminished breath sounds Cardiovascular: murmurs/extra sounds, regular rate and rhythm Gastrointestinal: bowel sounds, non-tender, soft Extremities: trace pitting pedal edema B/L Skin: No rash or lesions Results Result Diagram: 03/17/16 0720 03/17/16 0720 Results 24 hrs Laboratory Tests Test 03/16/16 12:20 03/16/16 17:37 03/16/16 21:57 03/17/16 07:20 Bedside Glucose 218 304 H 149 Anion Gap 16 Basophils # 0.0 Basophils % 0.4 Blood Morphology Comment Blood Urea Nitrogen 37 H Calcium Level 8.9 Carbon Dioxide Level 27 Chloride Level 97 Creatinine 2.26 H Eosinophils # 0.2 Eosinophils % 1.6 Glucose Level 255 H Hematocrit 34.4 L Hemoglobin 11.5 L Lymphocytes # 1.8 Lymphocytes % 14.5 L Magnesium Level 2.1 Mean Corpuscular Hemoglobin 28.0 L Mean Corpuscular Hemoglobin Concent 33.4 Mean Corpuscular Volume 83.8 Mean Platelet Volume 8.6 Monocytes # 0.8 Monocytes % 6.2 Neutrophils # 9.5 H Neutrophils % 77.3 H Nucleated Red Blood Cells # 0.0 Nucleated Red Blood Cells % 0.0 Phosphorus Level 4.9 Platelet Count 347 Potassium Level 4.2 Red Blood Count 4.10 L Red Cell Distribution Width 15.3 H Sodium Level 136 White Blood Count 12.2 H Test 03/17/16 07:26 03/17/16 11:43 Bedside Glucose 244 H 291 H Medications Medications Current Medications Ondansetron HCl (Zofran Inj) 4 mg Q6H PRN IV NAUSEA AND/OR VOMITING; Start at 16:00 Docusate Sodium (Colace) 100 mg BID PO Last administered on 03/17/16 09:12; Admin Dose 100 MG; Start 03/11/16 at 21:00 Pantoprazole (Protonix Tab) 40 mg DAILY@06 PO Last administered on 03/17/16 06: 15; Admin Dose 40 MG; Start 03/12/16 at 06:00 Fish Oil (Fish Oil) 1,000 mg BID PO Last administered on 03/17/16 09:11; Admin Dose 1,000 MG; Start 03/11/16 at 21:00 Miscellaneous Information 1 ea NOTE XX ; Start 03/11/16 at 16:30 Glucose (Glutose) 15 gm Q15M PRN PO DECREASED GLUCOSE; Start 03/11/16 at 16:30 Glucose (Glutose) 22.5 gm Q15M PRN PO DECREASED GLUCOSE; Start 03/11/16 at 16: 30 Dextrose (D50w Syringe) 25 ml Q15M PRN IV DECREASED GLUCOSE; Start 03/11/16 at 16:30 Dextrose (D50w Syringe) 50 ml Q15M PRN IV DECREASED GLUCOSE; Start 03/11/16 at 16:30 Glucagon (Glucagen) 1 mg Q15M PRN IM DECREASED GLUCOSE; Start 03/11/16 at 16:30 Glucose (Glutose) 15 gm Q15M PRN BUCCAL DECREASED GLUCOSE; Start 03/11/16 at 16 :30 Diagnostic Test (Pha) (Accucheck) 1 ea 02 XX ; Start 03/12/16 at 02:00 Heparin Sodium (Porcine) (Heparin (5000 Units/0.5 ml)) 5,000 unit BID SC Last administered on 03/17/16 09:19; Admin Dose 5,000 UNIT; Start 03/11/16 at 21:00 Carvedilol (Coreg) 25 mg BID PO Last administered on 03/17/16 09:11; Admin Dose 25 MG; Start 03/13/16 at 21:00 Hydralazine HCl (Apresoline) 10 mg Q6H PRN IV ELEVATED BLOOD PRESSURE Last administered on 03/16/16 08:53; Admin Dose 10 MG; Start 03/14/16 at 11:30 Hydralazine HCl (Apresoline) 25 mg Q8 PO Last administered on 03/17/16 09:11; Admin Dose 25 MG; Start 03/16/16 at 08:00 Isosorbide Mononitrate (Imdur) 30 mg DAILY PO Last administered on 03/17/16 09: 12; Admin Dose 30 MG; Start 03/16/16 at 09:00 Acetaminophen/ Hydrocodone Bitart ([place] (5/325)) 1 tab Q6H PRN PO PAIN LEVEL 7 -10; Start 03/16/16 at 11:30 Acetaminophen (Tylenol Tab) 650 mg Q6H PRN PO PAIN AND OR ELEVATED TEMP; Start 03/16/16 at 11:30 HEIDI LYNN Mar 17, 2016 11:49
[2016-03-17 11:59] LABS: HAAIG REFLEX REFLEX FILED
--- NOTE | 2016-03-17 12:07 | PN ---
DATE: 03/17/2016 SUBJECTIVE: The patient is clinically stable. No acute events noted overnight. No hemoptysis, hem atemesis or hematochezia. OBJECTIVE: VITAL SIGNS: Blood pressure is 126/60, respirations 19, pulse 69, temperature 98.4. HEENT: Head is normocephalic. NECK: Supple. HEART: Regular rate. LUNGS: Showed diminished breath sounds at the base. ABDOMEN: Soft, nontender to palpation. No rebound or guarding. EXTREMITIES: Negative for clubbing or cyanosis. No edema. DERMATOLOGIC: No rashes. MUSCULOSKELETAL: Have no joint effusion. NEUROLOGIC: No change in exam. MEDICATIONS: The patient's medications have been reviewed. LABORATORY DATA: Currently pending. The patient's urinalysis shows a protein creatinine ratio of a pproximately 3 grams per gram of creatinine. UPEP was within normal limits. CBC shows a white count of 12.2, hemoglobin 11.5, hematocrit of 34.4, and platelet count 347. The patient has a sodium of 136, potassium 4.2, chloride 97, BUN 37, creatinine 2.26. ASSESSMENT AND PLAN: 1. Nonoliguric acute kidney injury on top chronic kidney disease stage 3, with a previous baseline creatinine of 1.4 mg/dL. Etiology of acute kidney injury was secondary to acute tubular necrosis. The patient's initial urinalysis shows evidence of coarse granular casts consistent with tubular inj ury. Urinalysis was otherwise bland. The patient's renal function improved initially during the ho spital course; however, over the last 48 hours renal function has further declined. This may have b een due to recent diuretic therapy and hemodynamic changes. The patient, however, does have nephrot ic range proteinuria, as the protein creatinine ratio came back at 3 grams per gram of creatinine. Given the extensive level of proteinuria can be due to diabetic nephropathy, however other etiologie s need to be ruled out. Will therefore check complements. Will check NIKKY, ANCA, anti-double strand ed DNA, hepatitis panel. At this point, would continue to hold diuretic therapy, continue supportiv e care, renally dose all meds. Will monitor. 2. 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 Etiology is likely due to diabetic nep hropathy. However, given the fact the patient has extensive proteinuria, a full workup will be done . Will check complements, NIKKY, anti-double stranded DNA and ANCA level. The patient's SPEP and UPE P were within normal limits. Will otherwise continue to treat acute kidney injury as stated above a nd continue disease factor modification. 4. Mineral bone disorder. Continue to monitor calcium and phos levels. 5. Anemia with iron deficiency. The patient is on IV iron. Will continue to monitor. 6. Volume overload. Etiology is secondary to acute systolic and diastolic heart failure. Continue the current medical management. The patient is currently off diuretics as he is now euvolemic. 7. Acute hypoxemic respiratory failure secondary to congestive heart failure. Improved. 8. Diabetes. Continue Accu-Cheks and insulin sliding scale. 9. Hypertension. Continue the current blood pressure regimen. 10. Dyslipidemia. Continue statin therapy. Dictated By: WILLIS CONTEH/SANDRA Conf#: [id number] DID#: [id number]
[2016-03-17 13:29] LABS: COMPLEMENT C3 123 mg/dl (88-165)
[2016-03-17 13:30] LABS: COMPLEMENT C4 39 mg/dl (14-44)
[2016-03-17 13:54] LABS: HEPATITIS B CORE ANTIBODY NEGATIVE (NEGATIVE)
--- NOTE | 2016-03-17 16:19 | RADRPT ---
PROCEDURE: Renal US. CLINICAL INDICATION: Acute kidney injury. TECHNIQUE: Multiple sonographic images of the kidneys and urinary bladder were obtained. The imag es were reviewed on a PACS workstation. COMPARISON: 03/11/2016. FINDINGS: The right kidney measures 10.7 cm. The left kidney measures 11.9 cm. There is no renal mass. There is no hydronephrosis. There is no renal calculus. Renal parenchymal thickness is normal bilaterally. Both kidneys are hyperechoic consistent with med ical renal disease. The perirenal regions are normal with no fluid collection or mass. The urinary bladder is unremarkable. IMPRESSION: 1. Bilateral hyperechoic kidneys consistent with medical renal disease. 2. No hydronephrosis. 3. Otherwise normal renal ultrasound. RPTAT: QQ .Aren Wharton MD, MD Date Time Electronically viewed and signed by .Aren Wharton MD, MD on 03/17/2016 16:19 .R/
[2016-03-18] VITALS (12 sets, daily range): BP systolic 132–162; BP diastolic 63–77; PULSE 63–80; RESP 18–20
[2016-03-18] MEDS: ACCUCHECK XX SCH (02:03)
[2016-03-18] MEDS: PANTOPRAZOLE (EC) 40 MG TAB PO SCH (05:01)
[2016-03-18 06:30] LABS: POTASSIUM 4.2 mmol/L (3.5-5.1)
[2016-03-18 06:32] LABS: CREATININE 2.04 mg/dl (0.61-1.24)
[2016-03-18 06:33] LABS: PHOSPHORUS 4.2 mg/dl (2.5-4.9)
[2016-03-18 06:34] LABS: MAGNESIUM 2.1 mg/dl (1.7-2.5)
[2016-03-18 06:49] LABS: BASOPHIL # 0.1 10^3/ul (0.0-0.1); BASOPHILS % 0.5 % (0.0-2.0); EOSINOPHILS # 0.3 10^3/ul (0.0-0.5); EOSINOPHILS % 2.6 % (0.0-7.0); HEMATOCRIT 33.8 % (42.0-52.0); HEMOGLOBIN 11.6 g/dl (14.0-18.0); LYMPHOCYTES # 1.7 10^3/ul (0.8-2.9); LYMPHOCYTES % 15.3 % (15.0-51.0); MEAN CORPUSCULAR HEMOGLOBIN 28.5 pg (29.0-33.0); MEAN CORPUSCULAR HGB CONC 34.2 g/dl (32.0-37.0); MEAN CORPUSCULAR VOLUME 83.4 fl (82.0-101.0); MEAN PLATELET VOLUME 8.7 fl (7.4-10.4); MONOCYTE # 0.8 10^3/ul (0.3-0.9); MONOCYTES % 6.9 % (0.0-11.0); NEUTROPHIL # 8.2 10^3/ul (1.6-7.5); NEUTROPHILS % 74.7 % (39.0-77.0); PLATELET COUNT 301 10^3/UL (140-440); RED BLOOD COUNT 4.06 10^6/ul (4.70-6.10); RED CELL DISTRIBUTION WIDTH 15.3 % (11.5-14.5)
[2016-03-18 07:59] LABS: CONDITION 1; LH ANALYZER COMMENTS 1
[2016-03-18] MEDS: ISOSORBIDE MONONITRATE(SR)30 MG TAB PO SCH (08:17)
[2016-03-18] MEDS: SALMETEROL/FLUTICASONE 250/50 INHA INH SCH ×2 (08:18→21:42)
[2016-03-18] MEDS: FISH OIL 1,000 MG CAP PO SCH ×2 (08:18→21:42)
[2016-03-18] MEDS: DOCUSATE SODIUM 100 MG CAP PO SCH ×2 (08:18→21:42)
[2016-03-18] MEDS: INSULIN ASPART [NOVOLOG] 3 ML PEN SC SCH ×6 (08:20→22:00)
[2016-03-18] MEDS: HEPARIN 5,000 UNIT/0.5 ML SYG SC SCH ×2 (09:17→21:59)
--- NOTE | 2016-03-18 10:25 | PN ---
DATE: 03/18/2016 SUBJECTIVE: The patient is clinically stable. No acute events noted. No fevers, chills, nausea or vomiting. No shortness of breath. PHYSICAL EXAMINATION: VITAL SIGNS: Blood pressure is 156/77, respirations 18, pulse 75. HEENT: Head is normocephalic. NECK: Supple. HEART: Regular rate. LUNGS: Showed diminished breath sounds at the base. ABDOMEN: Soft, nontender to palpation. No rebound or guarding. EXTREMITIES: Negative for clubbing or cyanosis. No edema. DERMATOLOGIC: No rashes. MUSCULOSKELETAL: Have no joint effusion. NEUROLOGIC: No change in exam. MEDICATIONS: The patient's medications were reviewed. LABORATORY DATA: Shows a white count of 11.0, hemoglobin 11.6, hematocrit of 33.8, platelet count i s 301. Sodium 137, potassium 4.2, chloride 100, BUN 35, creatinine 2.05, glucose 238. Repeat renal ultrasound shows no significant change. The patient's serological data shows C3, C4 123 and 39, rhe umatoid factor negative. Hepatitis panel is negative. ASSESSMENT AND PLAN: 1. Nonoliguric acute kidney injury on top of chronic kidney disease stage III, with a previous base line creatinine of 1.4 mg/dL. Etiology of current acute kidney injury is secondary to acute tubular necrosis. The patient's renal function has been fluctuating, likely due to diuretic therapy during the hospital course. The patient did have nephrotic range proteinuria, which is likely due to diab etic nephropathy; however, other etiologies are being ruled out. Serologies have been sent. To chicho e the patient's complements, C3,C4 and rheumatoid factor, are within normal limits. The patient's A NA, ANCA, and anti-double stranded DNA are currently pending. At this point, the patient's renal fu nction is improving after holding diuretic therapy. Would continue the current treatment plan, supp ortive care, and renally dose all meds. 2. 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 Etiology is likely secondary to diabet ic nephropathy. However, a serological workup has been sent out, as stated above, to rule out other etiologies. To date, serological workup has been negative. Still waiting on NIKKY, anti-double stra nded DNA and ANCA. SPEP, UPEP, and C3, C4 have been within normal limits. Will continue to monitor . Continue disease factor modification. 3. Mineral bone disorder. Continue to monitor calcium and phosphorus levels. 4. Anemia of iron deficiency. The patient is receiving IV iron. 5. Volume overload secondary to acute systolic and diastolic heart failure. Continue the current m edical management. 6. Diabetes. Continue Accu-Cheks and insulin sliding scale. 7. Hypertension. Continue the current blood pressure regimen. 8. Dyslipidemia. Continue statin therapy. Dictated By: WILLIS CONTEH/SANDRA Conf#: [id number] DID#: [id number]
--- NOTE | 2016-03-18 11:47 | PN ---
Date/Time of Note Date/Time of Note DATE: 03/18/16 TIME: 11:45 Assessment/Plan VTE Prophylaxis VTE Prophylaxis Intervention: heparin Lines/Catheters IV [facility] Saline Lock Urinary Cath still in place: No Assessment/Plan Chief Complaint/Hosp Course Assessment/Plan 61 yo M with Acute resp insufficiency 2/2 #2:improved - Continue gentle diuresis CHF exacerbation - Acute on chronic with both systolic and diastolic dysfxn - improving. Reactive Leucocytosis r/o Bronchitis : resolved - monitor Mild Rhabdomyolysis: resolved - monitor DM 2: A1c = 8.3, sugars more elevated the last 24-48 hrs - continue ISS, add aspart w/ meal and lantus today, monitor HTN: Suboptimal control - Resume home meds / add PRN hydralazine for better BP control and titrate meds accordingly in-house Dyslipidemia Acute renal insufficiency likely2/2 ATN from CHF versus ?meds:Cr still elevated , slightly improved today (2.2 -> 2.0) - f/u renal rec's, on PO lasix for now - f/u UO and BMP in AM - Continue to Hold ACEi, ARBs, and metformin. Renally dose all meds. Serial labs. Underlying CKD likely 2/2 DM nephropathy - monitor Probable CAD - monitor Chronic CM likely ischemic EF 30-35% with diastolic dysfxn on last echo Prophylaxis: Heparin and PPI Problems: Subjective 24 Hr Interval Summary Free Text/Dictation No acute events overnight, seen by renal team today. Exam/Review of Systems Vital Signs Vitals Vital Signs Date Time Temp Pulse Resp B/P Pulse Ox O2 Delivery O2 Flow Rate FiO2 03/18/16 08:02 75 03/18/16 07:43 98.0 18 156/77 98 03/16/16 17:32 21 Intake and Output 03/17/16 03/17/16 03/18/16 15:00 23:00 07:00 Intake Total 960 ml Balance 960 ml Exam Gen: alert, oriented Head: atraumatic, normocephalic Eyes: PERRL, EOMI ENMT: mucosa pink and moist Neck: supple, No jvd Respiratory: less diminished breath sounds Cardiovascular: murmurs/extra sounds, regular rate and rhythm Gastrointestinal: bowel sounds, non-tender, soft Extremities: trace pitting pedal edema B/L Skin: No rash or lesions Results Result Diagram: 03/18/16 0550 03/18/16 0550 Results 24 hrs Laboratory Tests Test 03/17/16 11:59 03/17/16 17:59 03/17/16 20:22 03/18/16 03:30 Hepatitis A IgM Antibody NON-REACTIVE Bedside Glucose 254 H 223 H 209 Test 03/18/16 05:50 03/18/16 07:45 03/18/16 11:00 Anion Gap 15 Basophils # 0.1 Basophils % 0.5 Blood Morphology Comment Blood Urea Nitrogen 35 H Calcium Level 9.0 Carbon Dioxide Level 26 Chloride Level 100 Creatinine 2.04 H Eosinophils # 0.3 Eosinophils % 2.6 Glucose Level 230 H Hematocrit 33.8 L Hemoglobin 11.6 L Lymphocytes # 1.7 Lymphocytes % 15.3 Magnesium Level 2.1 Mean Corpuscular Hemoglobin 28.5 L Mean Corpuscular Hemoglobin Concent 34.2 Mean Corpuscular Volume 83.4 Mean Platelet Volume 8.7 Monocytes # 0.8 Monocytes % 6.9 Neutrophils # 8.2 H Neutrophils % 74.7 Nucleated Red Blood Cells # 0.0 Nucleated Red Blood Cells % 0.0 Phosphorus Level 4.2 Platelet Count 301 Potassium Level 4.2 Red Blood Count 4.06 L Red Cell Distribution Width 15.3 H Sodium Level 137 White Blood Count 11.0 H Bedside Glucose 238 H 291 H Medications Medications Current Medications Ondansetron HCl (Zofran Inj) 4 mg Q6H PRN IV NAUSEA AND/OR VOMITING; Start at 16:00 Docusate Sodium (Colace) 100 mg BID PO Last administered on 03/18/16 08:18; Admin Dose 100 MG; Start 03/11/16 at 21:00 Pantoprazole (Protonix Tab) 40 mg DAILY@06 PO Last administered on 03/18/16 05: 01; Admin Dose 40 MG; Start 03/12/16 at 06:00 Fish Oil (Fish Oil) 1,000 mg BID PO Last administered on 03/18/16 08:18; Admin Dose 1,000 MG; Start 03/11/16 at 21:00 Miscellaneous Information 1 ea NOTE XX ; Start 03/11/16 at 16:30 Glucose (Glutose) 15 gm Q15M PRN PO DECREASED GLUCOSE; Start 03/11/16 at 16:30 Glucose (Glutose) 22.5 gm Q15M PRN PO DECREASED GLUCOSE; Start 03/11/16 at 16: 30 Dextrose (D50w Syringe) 25 ml Q15M PRN IV DECREASED GLUCOSE; Start 03/11/16 at 16:30 Dextrose (D50w Syringe) 50 ml Q15M PRN IV DECREASED GLUCOSE; Start 03/11/16 at 16:30 Glucagon (Glucagen) 1 mg Q15M PRN IM DECREASED GLUCOSE; Start 03/11/16 at 16:30 Glucose (Glutose) 15 gm Q15M PRN BUCCAL DECREASED GLUCOSE; Start 03/11/16 at 16 :30 Diagnostic Test (Pha) (Accucheck) 1 ea 02 XX Last administered on 03/18/16 02: 03; Admin Dose 1 EA; Start 03/12/16 at 02:00 Heparin Sodium (Porcine) (Heparin (5000 Units/0.5 ml)) 5,000 unit BID SC Last administered on 03/18/16 09:17; Admin Dose 5,000 UNIT; Start 03/11/16 at 21:00 Carvedilol (Coreg) 25 mg BID PO Last administered on 03/18/16 08:18; Admin Dose 25 MG; Start 03/13/16 at 21:00 Hydralazine HCl (Apresoline) 10 mg Q6H PRN IV ELEVATED BLOOD PRESSURE Last administered on 03/16/16 08:53; Admin Dose 10 MG; Start 03/14/16 at 11:30 Hydralazine HCl (Apresoline) 25 mg Q8 PO Last administered on 03/18/16 05:01; Admin Dose 25 MG; Start 03/16/16 at 08:00 Isosorbide Mononitrate (Imdur) 30 mg DAILY PO Last administered on 03/18/16 08: 17; Admin Dose 30 MG; Start 03/16/16 at 09:00 Acetaminophen/ Hydrocodone Bitart ([place] (5/325)) 1 tab Q6H PRN PO PAIN LEVEL 7 -10; Start 03/16/16 at 11:30 Acetaminophen (Tylenol Tab) 650 mg Q6H PRN PO PAIN AND OR ELEVATED TEMP; Start 03/16/16 at 11:30 HEIDI LYNN Mar 18, 2016 11:47
[2016-03-18 14:38] LABS: MYELOPEROXIDASE ANTIBODY <1.0 AI; PROTEINASE-3 ANTIBODY <1.0 AI
--- NOTE | 2016-03-18 15:44 | PN ---
DATE: 03/18/2016 CARDIOLOGY FOLLOWUP SUBJECTIVE: Discussed with the staff. The patient's rhythm strip appears to be stable. He stated that he has no more shortness of breath and no chest pain. MEDICATIONS: Reviewed. PHYSICAL EXAMINATION: VITAL SIGNS: Temperature 98, heart rate of 75, blood pressure 156/77, respiratory rate of 18. HEENT: Normocephalic, atraumatic. Pupils are equal. CARDIOVASCULAR: Regular rate and rhythm. PULMONARY: With no wheezes anteriorly. GASTROINTESTINAL: Soft, nontender. EXTREMITIES: No significant lower extremity edema. NEUROLOGIC: Awake and alert. PSYCHIATRIC: Calm, pleasant. LABORATORY: WBC of 11, hemoglobin 11.6, platelets of 301. Sodium 137, potassium 4.2, BUN of 35, cr eatinine 2.05, glucose 230. Renal ultrasound shows bilateral hyperechogenic kidney consistent with medical renal disease. No hydronephrosis. ASSESSMENT AND PLAN: 1. Congestive heart failure, currently appeared to be 2. Severe cardiomyopathy appeared to be nonischemic, with no significant reversible ischemia noted on previous stress test. 3. Diabetes. 4. Renal failure, acute on chronic. 5. Abnormal EKG. RECOMMENDATIONS: We will continue with the current cardiac care. Off of JORDEN inhibitor due to his r enal insufficiency. Continue with carvedilol. Follow up renal recommendations. The patient otherw ise to follow with me as an outpatient. Dictated By: MANJEET JOSE/SANDRA Conf#: [id number] DID#: [id number] CC: HEIDI LYNN;*End*
[2016-03-18 16:11] LABS: ANA SCREEN NEGATIVE (NEGATIVE)
[2016-03-18] MEDS: INSULIN GLARGINE [LANtus] 3 ML PEN SC SCH (22:00)
[2016-03-19] VITALS (10 sets, daily range): BP systolic 116–169; BP diastolic 59–81; PULSE 64–75; RESP 18–20
[2016-03-19] MEDS: ACCUCHECK XX SCH (02:00)
[2016-03-19] MEDS: PANTOPRAZOLE (EC) 40 MG TAB PO SCH (06:27)
[2016-03-19] MEDS: INSULIN ASPART [NOVOLOG] 3 ML PEN SC SCH ×7 (07:52→21:39)
[2016-03-19 08:22] LABS: HEMOGLOBIN 11.6 g/dl (14.0-18.0); MEAN CORPUSCULAR HEMOGLOBIN 27.8 pg (29.0-33.0); MEAN CORPUSCULAR HGB CONC 33.1 g/dl (32.0-37.0); MEAN CORPUSCULAR VOLUME 83.9 fl (82.0-101.0); MEAN PLATELET VOLUME 10.5 fl (7.4-10.4); PLATELET COUNT 311 10^3/UL (140-440); RED BLOOD COUNT 4.17 10^6/ul (4.70-6.10); RED CELL DISTRIBUTION WIDTH 14.3 % (11.5-14.5); WHITE BLOOD COUNT 9.7 10^3/ul (4.8-10.8)
--- NOTE | 2016-03-19 08:22 | CONS ---
Date/Time of Note Date/Time of Note DATE: 03/19/16 TIME: 08:21 Consult Date/Type/Reason Admit Date/Time Mar 11, 2016 at 14:12 Initial Consult Date Type of Consultation: nephro Subjective no new c/o. good uop. Objective Vital Signs Date Time Temp Pulse Resp B/P Pulse Ox O2 Delivery O2 Flow Rate FiO2 03/19/16 08:08 68 03/19/16 07:07 98.7 18 159/75 98 03/19/16 04:00 Room Air 03/16/16 17:32 21 Intake and Output 03/18/16 03/18/16 03/19/16 15:00 23:00 07:00 Intake Total 500 ml Balance 500 ml Results/Medications Result Diagram: 03/18/16 0550 03/18/16 0550 Results 24 hrs Laboratory Tests Test 03/18/16 11:00 03/18/16 18:06 03/18/16 21:47 03/19/16 02:35 Bedside Glucose 291 H 125 207 196 Test 03/19/16 07:49 Bedside Glucose 179 Medications Current Medications Ondansetron HCl (Zofran Inj) 4 mg Q6H PRN IV NAUSEA AND/OR VOMITING; Start at 16:00 Docusate Sodium (Colace) 100 mg BID PO Last administered on 03/18/16 21:42; Admin Dose 100 MG; Start 03/11/16 at 21:00 Pantoprazole (Protonix Tab) 40 mg DAILY@06 PO Last administered on 03/19/16 06: 27; Admin Dose 40 MG; Start 03/12/16 at 06:00 Fish Oil (Fish Oil) 1,000 mg BID PO Last administered on 03/18/16 21:42; Admin Dose 1,000 MG; Start 03/11/16 at 21:00 Miscellaneous Information 1 ea NOTE XX ; Start 03/11/16 at 16:30 Glucose (Glutose) 15 gm Q15M PRN PO DECREASED GLUCOSE; Start 03/11/16 at 16:30 Glucose (Glutose) 22.5 gm Q15M PRN PO DECREASED GLUCOSE; Start 03/11/16 at 16: 30 Dextrose (D50w Syringe) 25 ml Q15M PRN IV DECREASED GLUCOSE; Start 03/11/16 at 16:30 Dextrose (D50w Syringe) 50 ml Q15M PRN IV DECREASED GLUCOSE; Start 03/11/16 at 16:30 Glucagon (Glucagen) 1 mg Q15M PRN IM DECREASED GLUCOSE; Start 03/11/16 at 16:30 Glucose (Glutose) 15 gm Q15M PRN BUCCAL DECREASED GLUCOSE; Start 03/11/16 at 16 :30 Diagnostic Test (Pha) (Accucheck) 1 ea 02 XX Last administered on 03/18/16 02: 03; Admin Dose 1 EA; Start 03/12/16 at 02:00 Heparin Sodium (Porcine) (Heparin (5000 Units/0.5 ml)) 5,000 unit BID SC Last administered on 03/18/16 21:59; Admin Dose 5,000 UNIT; Start 03/11/16 at 21:00 Carvedilol (Coreg) 25 mg BID PO Last administered on 03/18/16 21:47; Admin Dose 25 MG; Start 03/13/16 at 21:00 Hydralazine HCl (Apresoline) 10 mg Q6H PRN IV ELEVATED BLOOD PRESSURE Last administered on 03/16/16 08:53; Admin Dose 10 MG; Start 03/14/16 at 11:30 Hydralazine HCl (Apresoline) 25 mg Q8 PO Last administered on 03/19/16 06:27; Admin Dose 25 MG; Start 03/16/16 at 08:00 Isosorbide Mononitrate (Imdur) 30 mg DAILY PO Last administered on 03/18/16 08: 17; Admin Dose 30 MG; Start 03/16/16 at 09:00 Acetaminophen/ Hydrocodone Bitart ([place] (5/325)) 1 tab Q6H PRN PO PAIN LEVEL 7 -10; Start 03/16/16 at 11:30 Acetaminophen (Tylenol Tab) 650 mg Q6H PRN PO PAIN AND OR ELEVATED TEMP; Start 03/16/16 at 11:30 Insulin Glargine (Lantus) 10 unit DAILY@20 SC Last administered on 03/18/16 22: 00; Admin Dose 10 UNIT; Start 03/18/16 at 20:00 Assessment/Plan Chief Complaint/Hosp Course 1. Nonoliguric acute kidney injury on top of chronic kidney disease stage III, with a previous baseline creatinine of 1.4 mg/dL. -Creat stable, with adequate UOP. -Etiology of current acute kidney injury is secondary to acute tubular necrosis. The patient's renal function has been fluctuating, likely due to diuretic therapy during the hospital course. The patient did have nephrotic range proteinuria, which is likely due to diabetic nephropathy; however, other etiologies are being ruled out. -Serologies have been sent. To date the patient's complements, C3,C4 and rheumatoid factor, are within normal limits. The patient's NIKKY, ANCA, and anti- double stranded DNA are currently pending. At this point, the patient's renal function is improving after holding diuretic therapy. Would continue the current treatment plan, supportive care, and renally dose all meds. 2. 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 Etiology is likely secondary to diabetic nephropathy. However, a serological workup has been sent out, as stated above, to rule out other etiologies. To date, serological workup has been negative. Still waiting on NIKKY, anti-double stranded DNA and ANCA. SPEP, UPEP, and C3, C4 have been within normal limits. Will continue to monitor. Continue disease factor modification. 3. Mineral bone disorder. Continue to monitor calcium and phosphorus levels. 4. Anemia of iron deficiency. The patient is receiving IV iron. 5. Volume overload secondary to acute systolic and diastolic heart failure. Continue the current medical management. 6. Diabetes. Continue Accu-Cheks and insulin sliding scale. 7. Hypertension. Continue the current blood pressure regimen. 8. Dyslipidemia. Continue statin therapy. Problems: GRICEL HARE MD Mar 19, 2016 08:22
[2016-03-19] MEDS: FISH OIL 1,000 MG CAP PO SCH ×2 (08:45→20:55)
[2016-03-19] MEDS: DOCUSATE SODIUM 100 MG CAP PO SCH ×2 (08:46→20:55)
[2016-03-19] MEDS: ISOSORBIDE MONONITRATE(SR)30 MG TAB PO SCH (08:46)
[2016-03-19] MEDS: HEPARIN 5,000 UNIT/0.5 ML SYG SC SCH ×2 (08:47→21:03)
[2016-03-19] MEDS: SALMETEROL/FLUTICASONE 250/50 INHA INH SCH ×2 (08:47→21:36)
[2016-03-19 10:12] LABS: BASOPHILS % 0.4 % (0.0-2.0); EOSINOPHILS # 0.3 10^3/ul (0.0-0.5); EOSINOPHILS % 3.1 % (0.0-7.0); LYMPHOCYTES # 1.8 10^3/ul (0.8-2.9); LYMPHOCYTES % 18.7 % (15.0-51.0); MONOCYTE # 0.8 10^3/ul (0.3-0.9); MONOCYTES % 7.8 % (0.0-11.0); NEUTROPHIL # 6.6 10^3/ul (1.6-7.5); NEUTROPHILS % 67.3 % (39.0-77.0)
[2016-03-19 10:52] LABS: POTASSIUM 4.4 mmol/L (3.5-5.1)
--- NOTE | 2016-03-19 10:52 | PN ---
Date/Time of Note Date/Time of Note DATE: 03/19/16 TIME: 10:49 Assessment/Plan VTE Prophylaxis VTE Prophylaxis Intervention: heparin Lines/Catheters [facility] Saline Lock Urinary Cath still in place: No Assessment/Plan Chief Complaint/Hosp Course Assessment/Plan 61 yo M with Acute resp insufficiency 2/2 #2:improved - Continue gentle diuresis CHF exacerbation - Acute on chronic with both systolic and diastolic dysfxn - improving. Reactive Leucocytosis r/o Bronchitis : resolved - monitor Mild Rhabdomyolysis: resolved - monitor DM 2: A1c = 8.3, sugars improved in last 24 hrs - continue ISS, aspart w/ meal and lantus, monitor HTN: Suboptimal control - Resume home meds / add PRN hydralazine for better BP control and titrate meds accordingly in-house Dyslipidemia Acute renal insufficiency likely2/2 ATN from CHF versus ?meds:Cr still elevated - f/u renal rec's, on PO lasix for now, f/u today BMP (pending) - Continue to Hold ACEi, ARBs, and metformin. Renally dose all meds. Serial labs. Underlying CKD likely 2/2 DM nephropathy - monitor Probable CAD - monitor Chronic CM likely ischemic EF 30-35% with diastolic dysfxn on last echo Prophylaxis: Heparin and PPI Problems: Subjective 24 Hr Interval Summary Free Text/Dictation No acute events overnight, seen by renal team today. Exam/Review of Systems Vital Signs Vitals Vital Signs Date Time Temp Pulse Resp B/P Pulse Ox O2 Delivery O2 Flow Rate FiO2 03/19/16 08:08 68 03/19/16 07:07 98.7 18 159/75 98 03/19/16 04:00 Room Air 03/16/16 17:32 21 Intake and Output 03/18/16 03/18/16 03/19/16 15:00 23:00 07:00 Intake Total 500 ml Balance 500 ml Exam Gen: alert, oriented Head: atraumatic, normocephalic Eyes: PERRL, EOMI ENMT: mucosa pink and moist Neck: supple, No jvd Respiratory: less diminished breath sounds Cardiovascular: murmurs/extra sounds, regular rate and rhythm Gastrointestinal: bowel sounds, non-tender, soft Extremities: trace pitting pedal edema B/L Skin: No rash or lesions Results Result Diagram: 03/19/16 0641 03/18/16 0550 Results 24 hrs Laboratory Tests Test 03/18/16 11:00 03/18/16 18:06 03/18/16 21:47 03/19/16 02:35 Bedside Glucose 291 H 125 207 196 Test 03/19/16 06:41 03/19/16 07:49 Basophils # 0.0 Basophils % 0.4 Eosinophils # 0.3 Eosinophils % 3.1 Hematocrit 35.0 L Hemoglobin 11.6 L Lymphocytes # 1.8 Lymphocytes % 18.7 Mean Corpuscular Hemoglobin 27.8 L Mean Corpuscular Hemoglobin Concent 33.1 Mean Corpuscular Volume 83.9 Mean Platelet Volume 10.5 #H Monocytes # 0.8 Monocytes % 7.8 Neutrophils # 6.6 Neutrophils % 67.3 Nucleated Red Blood Cells # 0.0 Nucleated Red Blood Cells % 0.0 Platelet Count 311 Red Blood Count 4.17 L Red Cell Distribution Width 14.3 White Blood Count 9.7 Bedside Glucose 179 Medications Medications Current Medications Ondansetron HCl (Zofran Inj) 4 mg Q6H PRN IV NAUSEA AND/OR VOMITING; Start at 16:00 Docusate Sodium (Colace) 100 mg BID PO Last administered on 03/19/16 08:46; Admin Dose 100 MG; Start 03/11/16 at 21:00 Pantoprazole (Protonix Tab) 40 mg DAILY@06 PO Last administered on 03/19/16 06: 27; Admin Dose 40 MG; Start 03/12/16 at 06:00 Fish Oil (Fish Oil) 1,000 mg BID PO Last administered on 03/19/16 08:45; Admin Dose 1,000 MG; Start 03/11/16 at 21:00 Miscellaneous Information 1 ea NOTE XX ; Start 03/11/16 at 16:30 Glucose (Glutose) 15 gm Q15M PRN PO DECREASED GLUCOSE; Start 03/11/16 at 16:30 Glucose (Glutose) 22.5 gm Q15M PRN PO DECREASED GLUCOSE; Start 03/11/16 at 16: 30 Dextrose (D50w Syringe) 25 ml Q15M PRN IV DECREASED GLUCOSE; Start 03/11/16 at 16:30 Dextrose (D50w Syringe) 50 ml Q15M PRN IV DECREASED GLUCOSE; Start 03/11/16 at 16:30 Glucagon (Glucagen) 1 mg Q15M PRN IM DECREASED GLUCOSE; Start 03/11/16 at 16:30 Glucose (Glutose) 15 gm Q15M PRN BUCCAL DECREASED GLUCOSE; Start 03/11/16 at 16 :30 Diagnostic Test (Pha) (Accucheck) 1 ea 02 XX Last administered on 03/18/16 02: 03; Admin Dose 1 EA; Start 03/12/16 at 02:00 Heparin Sodium (Porcine) (Heparin (5000 Units/0.5 ml)) 5,000 unit BID SC Last administered on 03/19/16 08:47; Admin Dose 5,000 UNIT; Start 03/11/16 at 21:00 Carvedilol (Coreg) 25 mg BID PO Last administered on 03/19/16 08:45; Admin Dose 25 MG; Start 03/13/16 at 21:00 Hydralazine HCl (Apresoline) 10 mg Q6H PRN IV ELEVATED BLOOD PRESSURE Last administered on 03/16/16 08:53; Admin Dose 10 MG; Start 03/14/16 at 11:30 Hydralazine HCl (Apresoline) 25 mg Q8 PO Last administered on 03/19/16 06:27; Admin Dose 25 MG; Start 03/16/16 at 08:00 Isosorbide Mononitrate (Imdur) 30 mg DAILY PO Last administered on 03/19/16 08: 46; Admin Dose 30 MG; Start 03/16/16 at 09:00 Acetaminophen/ Hydrocodone Bitart ([place] (5/325)) 1 tab Q6H PRN PO PAIN LEVEL 7 -10; Start 03/16/16 at 11:30 Acetaminophen (Tylenol Tab) 650 mg Q6H PRN PO PAIN AND OR ELEVATED TEMP; Start 03/16/16 at 11:30 Insulin Glargine (Lantus) 10 unit DAILY@20 SC Last administered on 03/18/16 22: 00; Admin Dose 10 UNIT; Start 03/18/16 at 20:00 HEIDI LYNN Mar 19, 2016 10:52
[2016-03-19 10:54] LABS: CREATININE 1.87 mg/dl (0.61-1.24)
[2016-03-19 10:55] LABS: CALCIUM 9.3 mg/dl (8.4-10.2)
[2016-03-19] MEDS: INSULIN GLARGINE [LANtus] 3 ML PEN SC SCH (21:38)
[2016-03-20] MEDS: ACCUCHECK XX SCH (02:00)
[2016-03-20 02:52] VITALS: BP 138/65; PULSE 82
[2016-03-20] MEDS: PANTOPRAZOLE (EC) 40 MG TAB PO SCH (05:54)
[2016-03-20 06:47] LABS: POTASSIUM 4.3 mmol/L (3.5-5.1)
[2016-03-20 06:50] LABS: CREATININE 1.82 mg/dl (0.61-1.24)
[2016-03-20 06:51] LABS: CALCIUM 9.2 mg/dl (8.4-10.2)
[2016-03-20] MEDS: SALMETEROL/FLUTICASONE 250/50 INHA INH SCH (08:49)
[2016-03-20] MEDS: FISH OIL 1,000 MG CAP PO SCH (08:49)
[2016-03-20] MEDS: DOCUSATE SODIUM 100 MG CAP PO SCH (08:49)
[2016-03-20] MEDS: ISOSORBIDE MONONITRATE(SR)30 MG TAB PO SCH (08:49)
--- NOTE | 2016-03-20 08:50 | PN ---
Date/Time of Note Date/Time of Note DATE: 03/20/16 TIME: 08:45 Assessment/Plan VTE Prophylaxis VTE Prophylaxis Intervention: heparin Lines/Catheters [facility]from [facility] Saline Lock Urinary Cath still in place: No Assessment/Plan Chief Complaint/Hosp Course Assessment/Plan 61 yo M with Acute resp insufficiency 2/2 #2:improved - Continue to monitor CHF exacerbation - Acute on chronic with both systolic and diastolic dysfxn - improving. Reactive Leucocytosis r/o Bronchitis : resolved - monitor Mild Rhabdomyolysis: resolved - monitor DM 2: A1c = 8.3, sugars slightly elevated today - continue ISS, increase slightly aspart w/ meal and lantus, monitor HTN: Suboptimal control - Resume home meds / add PRN hydralazine for better BP control and titrate meds accordingly in-house Dyslipidemia Acute renal insufficiency likely2/2 ATN from CHF versus ?meds:Cr still elevated (2.04 -> 1.87 -> 1.82) - f/u renal rec's, UO - Continue to Hold ACEi, ARBs, and metformin. Renally dose all meds. Serial labs. Underlying CKD likely 2/2 DM nephropathy (baseline Cr = 1.4) - Cr more elevated - monitor, f/u renal rec's Probable CAD - monitor Chronic CM likely ischemic EF 30-35% with diastolic dysfxn on last echo Prophylaxis: Heparin and PPI Problems: Subjective 24 Hr Interval Summary Free Text/Dictation No acute events overnight. Exam/Review of Systems Vital Signs Vitals Vital Signs Date Time Temp Pulse Resp B/P Pulse Ox O2 Delivery O2 Flow Rate FiO2 03/20/16 02:52 82 138/65 03/19/16 19:00 98.7 19 99 03/19/16 04:00 Room Air 03/16/16 17:32 21 Intake and Output 03/19/16 03/19/16 03/20/16 15:00 23:00 07:00 Intake Total 1060 ml Balance 1060 ml Exam Gen: alert, oriented Head: atraumatic, normocephalic Eyes: PERRL, EOMI ENMT: mucosa pink and moist Neck: supple, No jvd Respiratory: less diminished breath sounds Cardiovascular: murmurs/extra sounds, regular rate and rhythm Gastrointestinal: bowel sounds, non-tender, soft Extremities: trace pitting pedal edema B/L Skin: No rash or lesions Results Result Diagram: 03/19/16 0641 03/20/16 0545 Results 24 hrs Laboratory Tests Test 03/19/16 11:58 03/19/16 17:09 03/19/16 21:34 03/20/16 02:38 Bedside Glucose 209 160 187 175 Test 03/20/16 05:45 03/20/16 08:15 Anion Gap 16 Blood Urea Nitrogen 36 H Calcium Level 9.2 Carbon Dioxide Level 23 Chloride Level 105 Creatinine 1.82 H Glucose Level 193 Potassium Level 4.3 Sodium Level 140 Bedside Glucose 193 Medications Medications Current Medications Ondansetron HCl (Zofran Inj) 4 mg Q6H PRN IV NAUSEA AND/OR VOMITING; Start at 16:00 Docusate Sodium (Colace) 100 mg BID PO Last administered on 03/19/16 20:55; Admin Dose 100 MG; Start 03/11/16 at 21:00 Pantoprazole (Protonix Tab) 40 mg DAILY@06 PO Last administered on 03/20/16 05: 54; Admin Dose 40 MG; Start 03/12/16 at 06:00 Fish Oil (Fish Oil) 1,000 mg BID PO Last administered on 03/19/16 20:55; Admin Dose 1,000 MG; Start 03/11/16 at 21:00 Miscellaneous Information 1 ea NOTE XX ; Start 03/11/16 at 16:30 Glucose (Glutose) 15 gm Q15M PRN PO DECREASED GLUCOSE; Start 03/11/16 at 16:30 Glucose (Glutose) 22.5 gm Q15M PRN PO DECREASED GLUCOSE; Start 03/11/16 at 16: 30 Dextrose (D50w Syringe) 25 ml Q15M PRN IV DECREASED GLUCOSE; Start 03/11/16 at 16:30 Dextrose (D50w Syringe) 50 ml Q15M PRN IV DECREASED GLUCOSE; Start 03/11/16 at 16:30 Glucagon (Glucagen) 1 mg Q15M PRN IM DECREASED GLUCOSE; Start 03/11/16 at 16:30 Glucose (Glutose) 15 gm Q15M PRN BUCCAL DECREASED GLUCOSE; Start 03/11/16 at 16 :30 Diagnostic Test (Pha) (Accucheck) 1 ea 02 XX Last administered on 03/20/16 02: 00; Admin Dose 1 EA; Start 03/12/16 at 02:00 Heparin Sodium (Porcine) (Heparin (5000 Units/0.5 ml)) 5,000 unit BID SC Last administered on 03/19/16 21:03; Admin Dose 5,000 UNIT; Start 03/11/16 at 21:00 Carvedilol (Coreg) 25 mg BID PO Last administered on 03/19/16 21:02; Admin Dose 25 MG; Start 03/13/16 at 21:00 Hydralazine HCl (Apresoline) 10 mg Q6H PRN IV ELEVATED BLOOD PRESSURE Last administered on 03/16/16 08:53; Admin Dose 10 MG; Start 03/14/16 at 11:30 Hydralazine HCl (Apresoline) 25 mg Q8 PO Last administered on 03/20/16 05:54; Admin Dose 25 MG; Start 03/16/16 at 08:00 Isosorbide Mononitrate (Imdur) 30 mg DAILY PO Last administered on 03/19/16 08: 46; Admin Dose 30 MG; Start 03/16/16 at 09:00 Acetaminophen/ Hydrocodone Bitart ([place] (5/325)) 1 tab Q6H PRN PO PAIN LEVEL 7 -10; Start 03/16/16 at 11:30 Acetaminophen (Tylenol Tab) 650 mg Q6H PRN PO PAIN AND OR ELEVATED TEMP; Start 03/16/16 at 11:30 Insulin Glargine (Lantus) 10 unit DAILY@20 SC Last administered on 03/19/16 21: 38; Admin Dose 10 UNIT; Start 03/18/16 at 20:00 HEIDI LYNN Mar 20, 2016 08:50
[2016-03-20] MEDS: INSULIN ASPART [NOVOLOG] 3 ML PEN SC SCH ×4 (08:51→12:02)
[2016-03-20] MEDS: HEPARIN 5,000 UNIT/0.5 ML SYG SC SCH (08:52)
[2016-03-20 08:59] VITALS: BP 137/84; PULSE 84; RESP 18
--- NOTE | 2016-03-20 09:24 | CONS ---
Date/Time of Note Date/Time of Note DATE: 03/20/16 TIME: 09:24 Consult Date/Type/Reason Admit Date/Time Mar 11, 2016 at 14:12 Type of Consultation: nephro Subjective good uop. no new c/o Objective Vital Signs Date Time Temp Pulse Resp B/P Pulse Ox O2 Delivery O2 Flow Rate FiO2 03/20/16 08:59 98.4 84 18 137/84 97 Room Air 03/16/16 17:32 21 Intake and Output 03/19/16 03/19/16 03/20/16 15:00 23:00 07:00 Intake Total 1060 ml Balance 1060 ml Results/Medications Result Diagram: 03/19/16 0641 03/20/16 0545 Results 24 hrs Laboratory Tests Test 03/19/16 11:58 03/19/16 17:09 03/19/16 21:34 03/20/16 02:38 Bedside Glucose 209 160 187 175 Test 03/20/16 05:45 03/20/16 08:15 Anion Gap 16 Blood Urea Nitrogen 36 H Calcium Level 9.2 Carbon Dioxide Level 23 Chloride Level 105 Creatinine 1.82 H Glucose Level 193 Potassium Level 4.3 Sodium Level 140 Bedside Glucose 193 Medications Current Medications Ondansetron HCl (Zofran Inj) 4 mg Q6H PRN IV NAUSEA AND/OR VOMITING; Start at 16:00 Docusate Sodium (Colace) 100 mg BID PO Last administered on 03/20/16 08:49; Admin Dose 100 MG; Start 03/11/16 at 21:00 Pantoprazole (Protonix Tab) 40 mg DAILY@06 PO Last administered on 03/20/16 05: 54; Admin Dose 40 MG; Start 03/12/16 at 06:00 Fish Oil (Fish Oil) 1,000 mg BID PO Last administered on 03/20/16 08:49; Admin Dose 1,000 MG; Start 03/11/16 at 21:00 Miscellaneous Information 1 ea NOTE XX ; Start 03/11/16 at 16:30 Glucose (Glutose) 15 gm Q15M PRN PO DECREASED GLUCOSE; Start 03/11/16 at 16:30 Glucose (Glutose) 22.5 gm Q15M PRN PO DECREASED GLUCOSE; Start 03/11/16 at 16: 30 Dextrose (D50w Syringe) 25 ml Q15M PRN IV DECREASED GLUCOSE; Start 03/11/16 at 16:30 Dextrose (D50w Syringe) 50 ml Q15M PRN IV DECREASED GLUCOSE; Start 03/11/16 at 16:30 Glucagon (Glucagen) 1 mg Q15M PRN IM DECREASED GLUCOSE; Start 03/11/16 at 16:30 Glucose (Glutose) 15 gm Q15M PRN BUCCAL DECREASED GLUCOSE; Start 03/11/16 at 16 :30 Diagnostic Test (Pha) (Accucheck) 1 ea 02 XX Last administered on 03/20/16 02: 00; Admin Dose 1 EA; Start 03/12/16 at 02:00 Heparin Sodium (Porcine) (Heparin (5000 Units/0.5 ml)) 5,000 unit BID SC Last administered on 03/20/16 08:52; Admin Dose 5,000 UNIT; Start 03/11/16 at 21:00 Carvedilol (Coreg) 25 mg BID PO Last administered on 03/20/16 08:48; Admin Dose 25 MG; Start 03/13/16 at 21:00 Hydralazine HCl (Apresoline) 10 mg Q6H PRN IV ELEVATED BLOOD PRESSURE Last administered on 03/16/16 08:53; Admin Dose 10 MG; Start 03/14/16 at 11:30 Hydralazine HCl (Apresoline) 25 mg Q8 PO Last administered on 03/20/16 05:54; Admin Dose 25 MG; Start 03/16/16 at 08:00 Isosorbide Mononitrate (Imdur) 30 mg DAILY PO Last administered on 03/20/16 08: 49; Admin Dose 30 MG; Start 03/16/16 at 09:00 Acetaminophen/ Hydrocodone Bitart ([place] (5/325)) 1 tab Q6H PRN PO PAIN LEVEL 7 -10; Start 03/16/16 at 11:30 Acetaminophen (Tylenol Tab) 650 mg Q6H PRN PO PAIN AND OR ELEVATED TEMP; Start 03/16/16 at 11:30 Insulin Glargine (Lantus) 10 unit DAILY@20 SC Last administered on 03/19/16 21: 38; Admin Dose 10 UNIT; Start 03/18/16 at 20:00 Assessment/Plan Chief Complaint/Hosp Course 1. Nonoliguric acute kidney injury on top of chronic kidney disease stage III, with a previous baseline creatinine of 1.4 mg/dL. -Creat stable, with adequate UOP. -Etiology of current acute kidney injury is secondary to acute tubular necrosis. The patient's renal function has been fluctuating, likely due to diuretic therapy during the hospital course. The patient did have nephrotic range proteinuria, which is likely due to diabetic nephropathy; however, other etiologies are being ruled out. -Serologies have been sent. To date the patient's complements, C3,C4 and rheumatoid factor, are within normal limits. The patient's NIKKY, ANCA, and anti- double stranded DNA are currently pending. At this point, the patient's renal function is improving after holding diuretic therapy. Would continue the current treatment plan, supportive care, and renally dose all meds. 2. 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 Etiology is likely secondary to diabetic nephropathy. However, a serological workup has been sent out, as stated above, to rule out other etiologies. To date, serological workup has been negative. Still waiting on NIKKY, anti-double stranded DNA and ANCA. SPEP, UPEP, and C3, C4 have been within normal limits. Will continue to monitor. Continue disease factor modification. 3. Mineral bone disorder. Continue to monitor calcium and phosphorus levels. 4. Anemia of iron deficiency. The patient is receiving IV iron. 5. Volume overload secondary to acute systolic and diastolic heart failure. Continue the current medical management. 6. Diabetes. Continue Accu-Cheks and insulin sliding scale. 7. Hypertension. Continue the current blood pressure regimen. 8. Dyslipidemia. Continue statin therapy. Problems: GRICEL HARE MD Mar 20, 2016 09:24
--- NOTE | 2016-03-20 11:19 | PDOCDIS ---
Discharge Instructions CONDITION Patient Condition: Stable HOME CARE INSTRUCTIONS: Special Diet: CARB CONTROLLED ACTIVITY: Activity Restrictions: Slowly Increase Activity FOLLOW UP/APPOINTMENTS Appointments Take your medications, see your doctor in the clinic in 1 week. HEIDI LYNN Mar 20, 2016 11:19
[2016-03-20] MEDS ORDERED: HYDR-3671 PO (11:22)
[2016-03-20] MEDS ORDERED: ADV25050 INH (11:22)
[2016-03-20] MEDS ORDERED: CARV25TA79 PO (11:22)
[2016-03-20] MEDS ORDERED: ISOS30TA5 PO (11:22)
--- NOTE | 2016-03-20 12:30 | DS ---
DATE OF ADMISSION: 03/11/2016 DATE OF DISCHARGE: 03/20/2016 A 61-year-old male. The patient initially came in with respiratory insufficiency. He was found with a congestive heart failure exacerbation, and his echocardiogram showed chronic cardiomyopathy, likely ischemic, with an ejection fraction of 30% to 35% with diastolic dysfunction, and that was on the last ECHO before this admission. He also had acute renal insufficiency. Baseline creatinine is 1.4; on this admission, it was in the 2.8 range when he was admitted, so he was seen by cardiology team and renal team during this hospital stay. The patient was carefully diuresed and treated for CHF. His renal function slowly improved. He was found in chronic kidney disease with nephrotic range proteinuria, likely secondary to diabetic nephropathy. For diabetes, his A1c was found to be 8.3. He was given insulin regimen. His sugars improved. Eventually, he was able to ambulate and tolerate a p.o. diet. His kidney function did improve, but his creatinine on discharge was around 1.82, but he had adequate urine output, so this could be his new baseline. In any event, his blood pressure medicines were also changed to help with his cardiomyopathy, and because the patient is ambulating, tolerating a p.o. diet, and his vital signs are stable, and his labs are stable today, he will be discharged home today in improved condition. He will go home with a new medicine regimen, including 1. Coreg 25 mg b.i.d. 2. Hydralazine 25 mg q. 8 hours. 3. Imdur 30 mg daily. 4. Advair 250/50 inhaled b.i.d. 5. Glipizide 5 mg b.i.d. 6. NovoLog mixture of 7/30 thirty units with breakfast and lunch and also NovoLog mix 70/30 with 20 units at night. 7. Metformin 1000 mg b.i.d. 8. [place]-3 one gram b.i.d. 9. Omeprazole 20 mg in the morning. 10. Januvia 50 mg daily. He will need to follow up with the primary care doctor in the clinic in the next 1 to 2 weeks. FINAL DIAGNOSES 1. Respiratory distress, secondary to congestive heart failure exacerbation, improved. 2. History of congestive heart failure with chronic cardiomyopathy with an ejection fraction of 30% to 35% with diastolic dysfunction on last echocardiogram. 3. Mild rhabdomyolysis, improved. 4. Reactive leukocytosis, secondary to bronchitis, improved. 5. Essential hypertension, improved. 6. Type 2 diabetes, A1c of 8.3, improved. 7. High cholesterol. 8. Acute on chronic renal insufficiency, improved. 9. Probable coronary artery disease. TIME SPENT DISCHARGING THE PATIENT: 40 minutes. Dictated By: HEIDI JOSEPH Conf#: [id number] DID#: [id number] MTDD
[2016-03-20 13:48] LABS: BASOPHIL # 0.1 10^3/ul (0.0-0.1); BASOPHILS % 0.7 % (0.0-2.0); EOSINOPHILS # 0.3 10^3/ul (0.0-0.5); EOSINOPHILS % 2.9 % (0.0-7.0); HEMATOCRIT 34.5 % (42.0-52.0); HEMOGLOBIN 11.5 g/dl (14.0-18.0); LYMPHOCYTES # 1.6 10^3/ul (0.8-2.9); LYMPHOCYTES % 17.9 % (15.0-51.0); MEAN CORPUSCULAR HEMOGLOBIN 27.9 pg (29.0-33.0); MEAN CORPUSCULAR HGB CONC 33.3 g/dl (32.0-37.0); MEAN CORPUSCULAR VOLUME 83.9 fl (82.0-101.0); MEAN PLATELET VOLUME 9.3 fl (7.4-10.4); MONOCYTE # 0.6 10^3/ul (0.3-0.9); MONOCYTES % 7.2 % (0.0-11.0); NEUTROPHIL # 6.4 10^3/ul (1.6-7.5); NEUTROPHILS % 71.3 % (39.0-77.0); PLATELET COUNT 279 10^3/UL (140-440); RED BLOOD COUNT 4.11 10^6/ul (4.70-6.10); RED CELL DISTRIBUTION WIDTH 15.9 % (11.5-14.5); UNCORRECTED WBC 8.9 10^3/ul (4.8-10.8); WHITE BLOOD COUNT 8.9 10^3/ul (4.8-10.8)
[2016-03-20 13:49] LABS: CONDITION 1; LH ANALYZER COMMENTS 1
[2016-03-20 14:11] VITALS: BP 151/72; PULSE 64; RESP 20
== END 2016-03-20 15:15 | disposition home or self-care (01) | DRG 291 ==
LOC: E/R 10:46 → TEL 14:12 → MS2 03-19 16:43
PROVIDERS: ADMIT Family Medicine; ATTEND Family Medicine
DX: I13.0 Hypertensive heart and chronic kidney disease with heart failure and stage 1 through stage 4 chronic kidney disease, or unspecified chronic kidney disease (principal); I50.43 Acute on chronic combined systolic (congestive) and diastolic (congestive) heart failure; N17.0 Acute kidney failure with tubular necrosis; J96.01 Acute respiratory failure with hypoxia; E87.0 Hyperosmolality and hypernatremia; M62.82 Rhabdomyolysis; E11.9 Type 2 diabetes mellitus without complications; I10 Essential (primary) hypertension; I25.5 Ischemic cardiomyopathy; N18.3 Chronic kidney disease, stage 3 (moderate); E11.21 Type 2 diabetes mellitus with diabetic nephropathy
CPT/HCPCS: 36415; 36600; 71010; 76775; 80048; 80053; 81001; 81003; 82043; 82550; 82553; 82570; 82595; 82803; 82962; 83036; 83540; 83735; 83880; 83970; 84100; 84155; 84156; 84165; 84166; 84300; 84484; 85025; 85610; 85730; 86021; 86038; 86160; 86226; 86430; 86704; 86709; 86803; 87340; 90686; 93005; 94640; 94664; 96374; J1120; J0360; J1815; J1940; J2405; J2916; J7030